=== PATIENT | female | born 1985 | race Caucasian/White ===

== ENCOUNTER 2019-02-24 06:16 | Day surgery (SDC) | payer OTHER ==
[2019-02-22 13:43] LABS: Absolute Lymphocytes (CBC) 3.1 K/uL (0.7-4.9); Absolute Monocytes 0.9 K/uL (0.1-1.3); Absolute Neutrophil 7.5 K/uL (1.8-8.0); Basophils % 0.6 % (0-1.3); Eosinophils % 4.7 % (0-4.4); Hematocrit 45.6 % (36.0-45.0); Lymphocytes % 25.3 % (15.3-44.8); MPV 9.7 fL (7.6-11.3); Monocytes % 7.5 % (3.3-12.3); RBC Red Blood Cell Count 4.98 M/uL (3.86-4.86)
[2019-02-22 13:47] LABS: Urine Appearance CLEAR; Urine Bilirubin NEGATIVE (NEG); Urine Blood NEGATIVE (NEG); Urine Color YELLOW; Urine Glucose NEGATIVE (NEG); Urine Protein NEGATIVE (NEG); Urine Specific Gravity <=1.005 (1.005-1.030); Urine Urobilinogen 0.2 mg/dL (0.2-1.0); Urine pH 6.5 (5.0-7.0)
[2019-02-22 13:49] LABS: Urine Microscopic Reflex NO UMIC
--- OUTSIDE RECORDS SUMMARY | 2019-02-24 06:21 | XMS REPORT | Clinical Summary ---
:1985 Author Organization [facility] Address [address] [place] [address] Care Team Providers Name Role Phone Betty Wilcox MD Primary Care Provider Allergies Active Allergy Reactions Severity Noted Date Comments Hyoscyamine Sulfate 04/29/2018 Morphine Hives, Other (See 10/05/2018 Decreased blood Comments) pressure Medications Medication Sig Dispensed Refills Start Date End Date Status prazosin Take 1 mg by 0 Active (MINIPRESS) 1 MG mouth nightly. capsule lisinopril Take 10 mg by 0 Active (PRINIVIL,ZESTRIL) mouth daily. 10 mg tablet venlafaxine Take 75 mg by 0 Active (EFFEXOR) 75 MG mouth daily. tablet gabapentin Take 300 mg by 0 Active (NEURONTIN) 300 mg mouth 3 capsule (three) times a day. METOPROLOL Take 25 mg by 0 Active SUCCINATE ORAL mouth. clonAZEPAM Take 0.25 mg 2 09/17/2018 Active (KlonoPIN) 0.5 MG by mouth 2 tablet (two) times a day. busPIRone (BUSPAR) Take 15 mg by 0 10/05/2018 Discontinued 15 MG tablet mouth 3 (three) times a day. nitrofurantoin, Take 1 capsule 14 capsule 0 10/09/2018 10/16/2018 macrocrystal-monoh (100 mg total) ydrate, (MACROBID) by mouth 2 100 MG capsule (two) times a day for 7 days. docusate sodium Take 1 capsule 20 capsule 0 10/09/2018 10/19/2018 (COLACE) 100 MG (100 mg total) capsule by mouth every 12 (twelve) hours for 10 days. magnesium citrate Take 1 Bottle 296 mL 0 10/09/2018 10/09/2018 solution (296 mL total) by mouth once for 1 dose. Active Problems No known active problems Encounters Date Type Specialty Care Team Description 02/09/2019 Hospital Encounter Radiology Robby Monterroso Numbness; Abnormal MRI 02/04/2019 Telephone Neurology Magdalena Wolff (Primary Dx); MIKE Tony Abnormal MRI 10/12/2018 Hospital Encounter Radiology Robby Monterroso New daily persistent headache 10/09/2018 Emergency Emergency Medicine Ector Silverman, Right lower quadrant abdominal pain (Primary Dx); DO Constipation, unspecified constipation type; Acute cystitis without hematuria; H/O drug abuse 10/05/2018 Office Visit Neurology Robby Monterroso Paresthesia (Primary Dx); Abnormal MRI 10/05/2018 Telephone Neurology Marcos Wolff daily persistent MIKE Tony headache (Primary Dx) 07/08/2018 Office Visit Neurology Robby Monterroso Paresthesia; Burning sensation; Lumbosacral radiculopathy 06/05/2018 Telephone Neurology Cecily Wolff MA 06/04/2018 Office Visit Neurology Robby Monterroso Demyelinating disease (Primary Dx) 06/02/2018 Telephone Neurology Cecily Wolff MA 05/26/2018 Hospital Encounter Radiology Robby Monterroso Demyelinating disease 05/20/2018 Hospital Encounter Radiology Robby Monterroso Demyelinating disease 05/20/2018 Hospital Encounter Radiology Robby Monterroso Demyelinating disease 05/12/2018 Telephone Neurology Jo Wolff MA (Primary Dx) 05/08/2018 Hospital Encounter Radiology Robby Monterroso Paresthesia MD 05/08/2018 Hospital Encounter Radiology Robby Monterroso Paresthesia; Facial paresthesia; Burning sensation 05/08/2018 Hospital Encounter Radiology Robby Monterroso Lumbosacral MD radiculopathy 04/29/2018 Office Visit Neurology Robby Monterroso Paresthesia (Primary Dx); Facial paresthesia; Burning sensation; Lumbosacral radiculopathy after 02/23/2018 Social History Tobacco Use Types Packs/Day Years Used Date Current Every Day Smoker Smokeless Tobacco: Never Used Alcohol Use Drinks/Week oz/Week Comments Yes ocasionally Sex Assigned at Date Recorded Not on file Job Start Date Occupation Industry Not on file Not on file Not on file Travel History Travel Start Travel End No recent travel history available. Last Filed Vital Signs Vital Sign Reading Time Taken Blood Pressure 138/86 10/09/2018 8:38 PM [employer] Pulse 100 10/09/2018 8:38 PM [employer]CH[employer]ING [employer] Temperature 37.2 C (98.9 F) 10/09/2018 4:20 PM [employer]CH[employer]ING [employer]ER Respiratory Rate 15 10/09/2018 8:38 PM [employer]CHASING ENGINEER Oxygen Saturation 97% 10/09/2018 8:38 PM [employer]CHASING ENGINEER Inhaled Oxygen Concentration - - Weight 103 kg (227 lb) 10/05/2018 2:04 PM [employer]CHASING ENGINEER Height 165.1 cm (5' 5") 10/09/2018 4:03 PM [employer]CH[employer]INEER Body Mass Index 37.77 10/05/2018 2:04 PM [employer]CHASING ENGINEER Plan of Treatment Date Type Specialty Care Team Description 06/07/2019 [place] [address] [facility] [address] [place], [place] [id number] Health Maintenance Due Date Last Done Comments CERVICAL CANCER SCREENING 2005 INFLUENZA VACCINE 06/03/2019 Procedures Procedure Name Priority Date/Time Associated Diagnosis Comments MRI BRAIN W WO Routine 02/09/2019 9:14 Numbness Results for this CONTRAST PM CDT Abnormal MRI procedure are in the results section. ESTIMATED GFR STAT 02/09/2019 8:40 Results for this PM CDT procedure are in the results section. CREATININE, WHOLE STAT 02/09/2019 8:40 Results for this BLOOD PM CDT procedure are in the results section. CT HEAD WO CONTRAST Routine 10/12/2018 3:38 New daily persistent Results for this PM [employer]CH[employer]ING ENGINEER headache procedure are in the results section. CT ABDOMEN PELVIS W STAT 10/09/2018 7:34 Results for this CONTRAST PM [employer]CH[employer]ING ENGINEER procedure are in the results section. URINE DRUGS OF ABUSE STAT 10/09/2018 6:00 Results for this SCREEN PM [employer]CH[employer]ING ENGINEER procedure are in the results section. HCG QUALITATIVE, Routine 10/09/2018 6:00 Results for this URINE SCREEN PM [employer]CH[employer]ING ENGINEER procedure are in the results section. URINALYSIS SCREEN AND STAT 10/09/2018 6:00 Results for this MICROSCOPY, WITH PM [employer]CHASING ENGINEER procedure are in REFLEX TO CULTURE the results section. URINE CULTURE STAT 10/09/2018 6:00 Results for this PM [employer]CH[employer]INEER procedure are in the results section. GRAM STAIN STAT 10/09/2018 6:00 Results for this PM [employer]CH[employer]ING ENGINEER procedure are in the results section. ESTIMATED GFR STAT 10/09/2018 5:59 Results for this PM [employer]CH[employer]ING [employer]INEER procedure are in the results section. LIPASE LEVEL STAT 10/09/2018 5:59 Results for this PM [employer]CH[employer]ING ENGINEER procedure are in the results section. COMPREHENSIVE STAT 10/09/2018 5:59 Results for this METABOLIC PANEL PM [employer]CHASING ENGINEER procedure are in the results section. HC COMPLETE BLD COUNT STAT 10/09/2018 5:59 Results for this W/AUTO DIFF PM [employer]CHASING ENGINEER procedure are in the results section. CYTOLOGY Routine 05/26/2018 10:47 Results for this (NON-GYNECOLOGICAL) AM CDT procedure are in REQUEST the results section. IR LUMBAR PUNCTURE Routine 05/26/2018 9:33 Demyelinating disease Results for this AM CDT procedure are in the results section. VARICELLA ZOSTER Routine 05/26/2018 9:25 Results for this VIRUS AB IGG, CSF AM CDT procedure are in the results section. VARICELLA ZOSTER Routine 05/26/2018 9:25 Results for this VIRUS AB IGM, CSF AM CDT procedure are in the results section. MISCELLANEOUS Routine 05/26/2018 9:25 Results for this REFERRAL TEST AM CDT procedure are in the results section. OLIGOCLONAL BANDING, Routine 05/26/2018 9:25 Results for this CSF AM CDT procedure are in the results section. HERPES SIMPLEX VIRUS Routine 05/26/2018 9:25 Results for this BY PCR AM CDT procedure are in the results section. LYME DISEASE Routine 05/26/2018 9:25 Demyelinating disease Results for this REFLEXIVE PANEL, CSF AM CDT procedure are in the results section. IGG SYNTHESIS RATE Routine 05/26/2018 9:25 Demyelinating disease Results for this STUDY AM CDT procedure are in the results section. VDRL, CSF SCREEN Routine 05/26/2018 9:25 Demyelinating disease Results for this AM CDT procedure are in the results section. GLUCOSE LEVEL, CSF Routine 05/26/2018 9:25 Demyelinating disease Results for this AM CDT procedure are in the results section. CSF CELL COUNT WITH Routine 05/26/2018 9:25 Demyelinating disease Results for this DIFFERENTIAL AM CDT procedure are in the results section. FUNGUS CULTURE Routine 05/26/2018 9:25 Results for this AM CDT procedure are in the results section. AFB CULTURE Routine 05/26/2018 9:25 Results for this AM CDT procedure are in the results section. GRAM STAIN Routine 05/26/2018 9:25 Results for this AM CDT procedure are in the results section. CRYPTOCOCCAL ANTIGEN Routine 05/26/2018 9:25 Demyelinating disease Results for this SCREEN AM CDT procedure are in the results section. CSF CULTURE Routine 05/26/2018 9:25 Demyelinating disease Results for this AM CDT procedure are in the results section. MRI CERVICAL SPINE W Routine 05/20/2018 4:22 Demyelinating disease Results for this WO CONTRAST PM CDT procedure are in the results section. MRI THORACIC SPINE W Routine 05/20/2018 4:21 Demyelinating disease Results for this WO CONTRAST PM CDT procedure are in the results section. MRI BRAIN W WO Routine 05/08/2018 8:08 Paresthesia Results for this CONTRAST PM CDT Facial paresthesia procedure are in Burning sensation the results section. ZZESTIMATED GFR STAT 05/08/2018 6:00 Results for this PM CDT procedure are in the results section. CREATININE, WHOLE STAT 05/08/2018 6:00 Results for this BLOOD PM CDT procedure are in the results section. XR CERVICAL SPINE AP Routine 05/08/2018 5:07 Paresthesia Results for this LATERAL FLEXION AND PM CDT procedure are in EXTENSION the results section. XR LUMBAR SPINE AP Routine 05/08/2018 5:07 Lumbosacral Results for this LATERAL FLEXION AND PM CDT radiculopathy procedure are in EXTENSION the results section. after 02/23/2018 Results MRI Brain W Wo Contrast (02/09/2019 9:14 PM CDT)Only the most recent of2 resultswithin the time period is included. Narrative Performed At EXAMINATION:MRI BRAIN W WO CONTRAST HM [facility] CLINICAL HISTORY:R20.0 Anesthesia of skin, R93.89 Abnormal findings on diagnostic imaging of other specified body structures, numbness COMPARISON:May 08, 2018 Findings: No intracranial hemorrhage, acute ischemia, extra-axial fluid collections or parenchymal mass lesions. No hydrocephalus. No suspicious focal bone marrow lesions. Stable mild periventricular T2/FLAIR signal hyperintensities. There there is some involvement of the corpus callosum. Findings are suggestive of demyelinating disease such as multiple sclerosis. No abnormal postcontrast enhancement. IMPRESSION: No acute intracranial abnormalities or mass lesions. Stable mild white matter signal changes suspicious for demyelinating disease such as multiple sclerosis. [facility]-[id number] Procedure Note Interface, Radiology Results Incoming - 02/09/2019 9:33 PM CDT EXAMINATION: MRI BRAIN W WO CONTRAST CLINICAL HISTORY: R20.0 Anesthesia of skin, R93.89 Abnormal findings on diagnostic imaging of other specified body structures, numbness COMPARISON: May 08, 2018 Findings: No intracranial hemorrhage, acute ischemia, extra-axial fluid collections or parenchymal mass lesions. No hydrocephalus. No suspicious focal bone marrow lesions. Stable mild periventricular T2/FLAIR signal hyperintensities. There there is some involvement of the corpus callosum. Findings are suggestive of demyelinating disease such as multiple sclerosis. No abnormal postcontrast enhancement. IMPRESSION: No acute intracranial abnormalities or mass lesions. Stable mild white matter signal changes suspicious for demyelinating disease such as multiple sclerosis. [facility]-[id number] Performing Organization Address City/[facility]/Zipcode Phone Number DIN[facility] [address] [place] [address] Estimated GFR (02/09/2019 8:40 PM CDT)Only the most recent of2 resultswithin the time period is included. Estimated GFR >=90 mL/min/1.73 m2 [facility] CatergoryUnitsInterpretation G1 >=90 Normal or high G2 60-89Mildly decreased S8t47-55Eyngie to moderately decreased L6j51-98Zhcwfdxgwz to severely decreased G4 15-29Severely decreased G5 <15Kidney failure The eGFR was calculated using the Chronic Kidney Disease Epidemiology Collaboration (CKD-EPI) equation. Interpretation is based on recommendations of the National Kidney Foundation-Kidney Disease Outcomes Quality Initiative (NKF-KDOQI) published in 2014. Specimen Plasma specimen Performing Organization Address [facility] Phone Number [facility] DEPARTMENT OF PATHOLOGY [id number] [place] [address] AND GENOMIC MEDICINE [facility] [id number] [place] [address] HOSPITAL Creatinine, whole blood (02/09/2019 8:40 PM CDT)Only the most recent of2 resultswithin the time period is included. Creatinine, whole blood 0.58 0.50 - 0.90 mg/dL [facility] Specimen Plasma specimen Performing Organization Address [facility] Centercode Phone Number [facility] DEPARTMENT OF PATHOLOGY [id number] [place] [address] AND [employer] MEDIC[facility] [address] [facility]. [place], [place] [id number] [place] [address] CT Head Wo Contrast (10/12/2018 3:38 PM PURCHASING ENGINEER) Narrative Performed At EXAMINATION: CT HEAD WO CONTRAST [facility] CLINICAL HISTORY: G44.52 New daily persistent headache (ndph), headache COMPARISON:None TECHNIQUE: Noncontrast CT of the brain was performed from the skull base to the vertex. Both soft tissue and bone reconstruction algorithms are interpreted. CT imaging was performed with iterative reconstruction techniques and/or automated exposure control to reduce radiation dose. FINDINGS: No intracranial hemorrhage, extra-axial collection, or mass-effect is seen.No acute cortical infarct is identified. No hyperdense vessel is seen. No air-fluid level is seen in the visualized portions of the paranasal sinuses. Mastoid air cells are clear. IMPRESSION: Unremarkable CT brain. [facility]-[id number] Procedure Note Hm Interface, Radiology Results Incoming - 10/12/2018 3:45 PM PURCHASING ENGINEER EXAMINATION: CT HEAD WO CONTRAST CLINICAL HISTORY: G44.52 New daily persistent headache (ndph), headache COMPARISON: None TECHNIQUE: Noncontrast CT of the brain was performed from the skull base to the vertex. Both soft tissue and bone reconstruction algorithms are interpreted. CT imaging was performed with iterative reconstruction techniques and/or automated exposure control to reduce radiation dose. FINDINGS: No intracranial hemorrhage, extra-axial collection, or mass-effect is seen. No acute cortical infarct is identified. No hyperdense vessel is seen. No air-fluid level is seen in the visualized portions of the paranasal sinuses. Mastoid air cells are clear. IMPRESSION: Unremarkable CT brain. [facility]-[id number] Performing Organization Address City/State/Zipcode Phone Number [facility] [address] [place] [address] CT Abdomen Pelvis W Contrast (10/09/2018 7:34 PM PURCHASING ENGINEER) Narrative Performed At EXAMINATION:CT ABDOMEN PELVIS W CONTRAST [facility] CLINICAL HISTORY:RLQ pain TECHNIQUE: Multiple axial images of the abdomen and pelvis were obtained following intravenous administration of iodinated contrast. Sagittal and coronal computerized reformatted images were also obtained. CT scans are performed using radiation dose reduction techniques. Technical factors are evaluated and adjusted to ensure appropriate moderation of exposure. Automated dose management technology is applied to adjust radiation exposure while achieving a diagnostic quality image. COMPARISON:None. IMPRESSION: *No significant CT finding to explain the patient's right lower quadrant abdominal pain. The appendix is unremarkable. Stomach, small and large bowel are unremarkable. *Clear lung bases. Liver, gallbladder, spleen, pancreas, adrenal glands, kidneys, urinary bladder are unremarkable. Uterus is present. No large adnexal masses. No significant free fluid. No enlarged adenopathy by CT size criteria. Abdominal aorta and major branch vessels are unremarkable. Osseous sutures are intact. Mild to moderate degenerative disc disease at L4-5. [facility]-[id number] Procedure Note Interface, Radiology Results Incoming - 10/09/2018 7:45 PM PURCHASING ENGINEER EXAMINATION: CT ABDOMEN PELVIS W CONTRAST CLINICAL HISTORY: RLQ pain TECHNIQUE: Multiple axial images of the abdomen and pelvis were obtained following intravenous administration of iodinated contrast. Sagittal and coronal computerized reformatted images were also obtained. CT scans are performed using radiation dose reduction techniques. Technical factors are evaluated and adjusted to ensure appropriate moderation of exposure. Automated dose management technology is applied to adjust radiation exposure while achieving a diagnostic quality image. COMPARISON: None. IMPRESSION: * No significant CT finding to explain the patient's right lower quadrant abdominal pain. The appendix is unremarkable. Stomach, small and large bowel are unremarkable. * Clear lung bases. Liver, gallbladder, spleen, pancreas, adrenal glands, kidneys, urinary bladder are unremarkable. Uterus is present. No large adnexal masses. No significant free fluid. No enlarged adenopathy by CT size criteria. Abdominal aorta and major branch vessels are unremarkable. Osseous sutures are intact. Mild to moderate degenerative disc disease at L4-5. [facility]-[id number] Performing Organization Address City/State/Zipcode Phone Number [facility] [address] [place] [address] Urinalysis screen and microscopy, with reflex to culture (10/09/2018 6:00 PM PURCHASING ENGINEER) Specimen site Clean catch [facility] Color, UA Straw [facility] Appearance, UA Clear [facility] Specific gravity, UA 1.005 1.001 - 1.030 [facility] pH, UA 7.0 5.0 - 9.0 [facility] Protein, UA Negative Negative [facility] Glucose, UA Negative Negative [facility] Ketones, UA Negative Negative [facility] Bilirubin, UA Negative Negative [facility] Blood, UA Negative Negative [facility] Nitrite, UA Negative Negative [facility] Urobilinogen, UA <2.0 <2.0 E.U./dL [facility] Leukocyte esterase, UA Trace (A) Negative [facility] Epithelial cells, UA <1 /HPF [facility] Round epithelial cells, UA <1 0 - 5 /HPF [facility] WBC, UA 4 0 - 4 /HPF [facility] RBC, UA 3 0 - 5 /HPF [facility] Bacteria, UA Moderate (A) None seen [facility] Yeast, UA None seen [facility] Yeast with pseudohyphae, UA None seen [facility] Specimen Urine Performing Organization Address City/[facility] Centercode Phone Number [facility] DEPARTMENT OF PATHOLOGY [address] [place] [address] hCG qualitative, urine screen (10/09/2018 6:00 PM PURCHASING ENGINEER) hCG qualitative, urine NegativeComment: [facility] Sensitivity of HCG test: [address] [place] [address] mIU/ml Specimen Urine Performing Organization Address City/[facility] Centercode Phone Number [facility] DEPARTMENT OF PATHOLOGY [address] [place] [address] Urine drugs of abuse screen (10/09/2018 6:00 PM PURCHASING ENGINEER) Amphetamine screen, urine Negative [facility] Barbiturate screen, urine Negative [facility] Benzodiazepine screen, Negative [facility] urine [facility] Cannabinoid screen, urine Negative [facility] Cocaine screen, urine Negative [facility] Methadone metabolite Negative [facility] (EDDP), urine [facility] Opiates screen, urine Negative [facility] Phencyclidine screen, urine Negative [facility] Tricyclic screen, urine Negative [facility] Comment: [facility] Drug screen minimum concentration of detectability [id number] ng/mL Barbiturates 200 ng/mL Zkybajavktkhzvf598 ng/mL Ucezfsx488 ng/mL Rtsmmoprd957 ng/mL Jvudlrq226 ng/mL Phencyclidine 25 ng/mL Mkmuzyrircuf63 ng/mL Lhxlbwdbzi8277 ng/mL Negative test results indicates presumptive evidence of lack of clinically significant drug concentration in this urine specimen. Positive test results are presumptive evidence of clinically significant drug concentration in this urine specimen. Testing performed for medical purposes only. Specimen Urine Performing Organization Address City/[facility] Centercode Phone Number [facility] DEPARTMENT OF PATHOLOGY [address] [place] [address] AND [facility] [address] [place] [address] HOSPITAL Gram stain (10/09/2018 6:00 PM PURCHASING ENGINEER)Only the most recent of2 resultswithin the time period is included. Gram stain result No WBC's [facility] Moderate Gram positive rods Comment: Specimen Information Specimen Source: Urine Specimen Site: Clean catch Specimen Urine Performing Organization Address City/[facility] Centercode Phone Number [facility] DEPARTMENT OF PATHOLOGY AND [address] [place] [phone] Urine culture (10/09/2018 6:00 PM PURCHASING ENGINEER) Urine culture isolate Mixed samanta <=10-3 col/cc [facility] Comment: Specimen Information Specimen Source: Urine Specimen Site: Clean catch Specimen Urine Performing Organization Address [facility] Phone Number [facility] DEPARTMENT OF PATHOLOGY AND [address] [place] [phone] CBC with platelet and differential (10/09/2018 5:59 PM PURCHASING ENGINEER) WBC 11.9 (H) 4.5 - 11.0 k/uL [facility] RBC 4.93 4.20 - 5.50 m/uL [facility] HGB 14.9 12.0 - 16.0 g/dL [facility] HCT 45.9 37.0 - 47.0 % [facility] MCV 93.1 82.0 - 100.0 fL [facility] MCH 30.2 27.0 - 34.0 pg [facility] MCHC 32.5 31.0 - 37.0 g/dL [facility] RDW - SD 43.6 37.0 - 55.0 fL [facility] MPV 10.3 6.9 - 11.0 fL [facility] Platelet count 343 150 - 400 K/uL [facility] Nucleated RBC 0.00 /100 WBC [facility] Neutrophils 66.1 39.0 - 69.0 % [facility] Lymphocytes 24.5 (L) 25.0 - 45.0 % [facility] Monocytes 5.1 0.0 - 10.0 % [facility] Eosinophils 3.4 0.0 - 5.0 % [facility] Basophils 0.5 0.0 - 1.0 % [facility] Immature granulocytes 0.4 0.0 - 1.0 % [facility] Specimen Blood Performing Organization Address City/[facility]/Zipcode Phone Number [facility] DEPARTMENT OF PATHOLOGY [id number] [place] [address] Lipase level (10/09/2018 5:59 PM PURCHASING ENGINEER) Lipase 30 13 - 60 U/L [facility] Specimen Plasma specimen Performing Organization Address City/[facility]/Zipcode Phone Number [facility] DEPARTMENT OF PATHOLOGY [address] [place] [address] Comprehensive metabolic panel (10/09/2018 5:59 PM PURCHASING ENGINEER) Sodium 143 135 - 148 mEq/L [facility] Potassium 4.1 3.5 - 5.0 mEq/L [facility] Chloride 102 98 - 112 mEq/L [facility] CO2 25 24 - 31 mEq/L [facility] Anion gap 16@ANIO (H) 7 - 15 mEq/L [facility] BUN 7 6 - 20 mg/dL [facility] Creatinine 0.67 0.50 - 0.90 mg/dL [facility] Glucose 115 (H) 65 - 99 mg/dL [facility] Calcium 10.0 8.3 - 10.2 mg/dL [facility] Protein 8.0 6.3 - 8.3 g/dL [facility] Albumin 4.5 3.5 - 5.0 g/dL [facility] A/G ratio 1.3 0.7 - 3.8 [facility] Alkaline phosphatase 66 35 - 104 U/L [facility] AST 16 10 - 35 U/L [facility] ALT 13 5 - 50 U/L [facility] Total bilirubin <0.2 0.2 - 1.2 mg/dL [facility] Specimen Plasma specimen Performing Organization Address City/State/Zipcode Phone Number [facility] DEPARTMENT OF PATHOLOGY [address] [place] [address] AND GENOMIC MEDICINE [facility] [id number] [place] [address] Cytology (non-gynecological) request (05/26/2018 10:47 AM CDT) [facility] DEPARTMENT OF PATHOLOGY AND GENOMIC MEDICINE Cytology See link below for PDF [facility] DEPARTMENT OF (non-gynecological) report Lab Report PATHOLOGY AND GENOMIC MEDICINE Result status This is Final Report to [facility] DEPARTMENT OF [id number] PATHOLOGY AND GENOMIC MEDICINE Performing Organization Address City/[facility]ode Phone Number [facility] DEPARTMENT OF PATHOLOGY [id number] [place] [address] AND GENOMIC MEDICINE IR Lumbar Puncture by Radiology (05/26/2018 9:33 AM CDT) Narrative Performed At EXAMINATION:IR LUMBAR PUNCTURE [facility] NUMBER OF VIEWS: 0 CLINICAL HISTORY:G37.9 Demyelinating disease of central nervous systemunspecified, abnormal mri brain COMPARISON:None. FINDINGS: After informed consent, lumbar puncture was performed with fluoroscopic assistance at the L5-S1 level using a 5 inch 25-gauge spinal needle. Approximately 22 cc of clear cerebral spinal fluid was obtained and sent to the lab. No radiographs were taken. The total fluoroscopy time was 0.03 minutes. IMPRESSION: Lumbar puncture. [facility]-[id number] Procedure Note Hm Interface, Radiology Results Incoming - 05/26/2018 11:00 AM CDT EXAMINATION: IR LUMBAR PUNCTURE NUMBER OF VIEWS: 0 CLINICAL HISTORY: G37.9 Demyelinating disease of central nervous system unspecified, abnormal mri brain COMPARISON: None. FINDINGS: After informed consent, lumbar puncture was performed with fluoroscopic assistance at the L5-S1 level using a 5 inch 25-gauge spinal needle. Approximately 22 cc of clear cerebral spinal fluid was obtained and sent to the lab. No radiographs were taken. The total fluoroscopy time was 0.03 minutes. IMPRESSION: Lumbar puncture. [id number] Performing Organization Address City/[facility]/Zipcode Phone Number [facility] [address] [place] [address] Varicella zoster virus Ab IgM, CSF (05/26/2018 9:25 AM CDT) VZV antibody IgM, CSF 0.00 <=0.90 [facility] Comment: INTERPRETIVE INFORMATION: VZV Ab, IgM, CSF 0.90 ISR or less ........ Negative - No significant level of IgM antibody to varicella- zoster detected. 0.91 - 1.09 ISR ......... Equivocal - Repeat testing in 10-14 days may be helpful. 1.10 ISR or greater ..... Positive - Significant level of IgM antibody to varicella- zoster virus detected , which may indicate current or recent infection. However, low levels of antibodies may occasionally persist for more than 12 months post-infection. While the presence of IgM antibodies suggest current or recent infection, low levels of IgM antibodies may occasionally persist for more than 12 months post-infection. The detection of antibodies to varicella-zoster in CSF may indicate central nervous system infection. However, consideration must be given to possible contamination by blood or transfer of serum antibodies across the blood-brain barrier. Test developed and characteristics determined by [facility]. See Compliance Statement B: [employer]/ Performed by [facility], [address] [place] [address] www.[employer], John Hanna MD - Lab. Director Specimen Serum Performing Organization Address [facility] Centercode Phone Number [facility] LABORATORY [address] [place] [address] Varicella zoster virus Ab IgG, CSF (05/26/2018 9:25 AM CDT) VZV antibody IgG, CSF <10 IV [facility] Comment: INTERPRETIVE INFORMATION: VZV Ab, IgG, CSF 134 IV or Less.... Negative: No significant level of IgG antibody to varicella- zoster virus detected. 135 - 165 IV ....... Equivocal: Repeat testing in 10-14 days may be helpful. 166 IV or Greater .. Positive: IgG antibody to varicella-zoster virus detected , which may indicate a current or past varicella-zoster infection. The detection of antibodies to varicella-zoster in CSF may indicate central nervous system infection. However, consideration must be given to possible contamination by blood or transfer of serum antibodies across the blood-brain barrier. Test developed and characteristics determined by [facility]. See Compliance Statement B: [employer]/ Performed by [facility], [address] [place] [address] www.[employer], John Hanna MD - Lab. Director Specimen Serum Performing Organization Address City/[facility]/Zipcode Phone Number [facility] [address] [place] [address] IgG synthesis rate study (05/26/2018 9:25 AM CDT) IgG albumin ratio, CSF 0.12 0.00 - 0.23 [facility] DEPARTMENT OF PATHOLOGY AND GENOMIC MEDICINE IgG index, CSF 0.58 0.01 - 0.63 [facility] DEPARTMENT OF PATHOLOGY AND GENOMIC MEDICINE IgG synthetic rate 2.04 -9.90 - 3.30 mg/day [facility] DEPARTMENT OF PATHOLOGY AND GENOMIC MEDICINE Q-albumin ratio, CSF 4.44 2.00 - 7.50 [facility] DEPARTMENT OF PATHOLOGY AND GENOMIC MEDICINE IgG, CSF 1.97 1.00 - 3.00 mg/dL [facility] DEPARTMENT OF PATHOLOGY AND GENOMIC MEDICINE Albumin, CSF 16.88 10.00 - 30.00 mg/dL [facility] DEPARTMENT OF PATHOLOGY AND GENOMIC MEDICINE IgG 766 700 - 1,600 mg/dL [facility] DEPARTMENT OF PATHOLOGY AND GENOMIC MEDICINE Albumin, S 3,800.0 3,640.0 - 5,304.0 mg/dL [facility] DEPARTMENT OF PATHOLOGY AND GENOMIC MEDICINE Specimen Cerebrospinal fluid Performing Organization Address City/State/Zipcode Phone Number [facility] DEPARTMENT OF PATHOLOGY AND [address] [place] [address] [facility] MEDICINE Miscellaneous referral test (05/26/2018 9:25 AM CDT) [facility] test name HSV IgG/IgM, CSF [facility] result SEE NOTE [facility] Comment: Herpes Simplex Virus Type 1 and/or 2 Antibodies, IgM by ROSSY, CSF [facility] test code [id number] HSV 1 and/or 2 Antibodies IgM, CSF 0.14 IV (Ref Interval: <=0.89) INTERPRETIVE INFORMATION: Herpes Simplex Virus Type 1 and/or 2 Antibodies, IgM by ROSSY, CSF 0.89 IV or Less .......... Negative: No significant level of detectable HSV IgM antibody. 0.90 - 1.09 IV ........... Equivocal: Questionable presence of IgM antibodies. Repeat testing in 10 -14 days may be helpful. 1.10 IV or Greater ....... Positive: IgM antibody to HSV detected, which may indicate a current or recent infection. However, low levels of IgM antibodies may occasionally persist for more than 12 months post- infection. The detection of antibodies to herpes simplex virus in CSF may indicate central nervous system infection. However, consideration must be given to possible contamination by blood or transfer of serum antibodies across the blood-brain barrier. Fourfold or greater rise in CSF antibodies to herpes on specimens at least 4 weeks apart are found in 74-94 % of patients with herpes encephalitis. Specificity of the test based on a single CSF testing is not established. Presently PCR is the primary means of establishing a diagnosis of herpes encephalitis. Test developed and characteristics determined by [facility]. See Compliance Statement B: [email or web address] Herpes Simplex Virus Type 1 and/or 2 Antibodies, IgG, CSF [facility] test code [id number] HSV 1/2 Antibody Screen IgG, CSF <0.34 IV (Ref Interval: <=0.89) INTERPRETIVE INFORMATION: Herpes Simplex Virus Type 1 and/or 2 Antibodies, IgG CSF 0.89 IV or Less .......... Negative: No significant level of detectable HSV IgG antibody. 0.90 - 1.09 IV ........... Equivocal: Questionable presence of IgG antibodies. Repeat testing in 10 -14 days may be helpful. 1.10 IV or Greater ....... Positive: IgG antibody to HSV detected, which may indicate a current or past HSV infection. The detection of antibodies to herpes simplex virus in CSF may indicate central nervous system infection. However, consideration must be given to possible contamination by blood or transfer of serum antibodies across the blood-brain barrier. Fourfold or greater rise in CSF antibodies to herpes on specimens at least 4 weeks apart are found in 74-94 % of patients with herpes encephalitis. Specificity of the test based on a single CSF testing is not established. Presently PCR is the primary means of establishing a diagnosis of herpes encephalitis. Test developed and characteristics determined by [facility]. See Compliance Statement B: [employer]/CS Test performed by: [facility] [address] [place], [id number] Narrative Performed At HSV IgG/IgM, CSF [facility] Performing Organization Address [facility] Centercoin Phone Number [facility] [address] [place] [address] Herpes simplex virus by PCR (05/26/2018 9:25 AM CDT) Herpes virus, PCR Not-Detected Not-Detected [facility] DEPARTMENT OF PATHOLOGY AND [employer] [facility] Herpes virus, PCR See link below for PDF [facility] DEPARTMENT OF PATHOLOGY Lab ReportComment: Case AND GENOMIC MEDICINE Number: [id number] Performing Organization Address [facility] Centercode Phone Number [facility] DEPARTMENT OF PATHOLOGY AND [address] [place] [address] [employer] [facility] AFB culture (05/26/2018 9:25 AM CDT) AFB culture isolate No growth after 6 weeks of incubation. [facility] DEPARTMENT OF PATHOLOGY Comment: AND [employer] MEDICINE Specimen Information Specimen Source: CSF (Spinal Fluid) Specimen Site: Lumbar puncture Specimen Cerebrospinal fluid - Lumbar puncture Performing Organization Address [facility] Phone Number [facility] DEPARTMENT OF PATHOLOGY AND [address] [place] [address] [employer] Lyme disease reflexive panel, CSF (05/26/2018 9:25 AM CDT) B. burgdorferi Abs ROSSY, 0.11 <=0.99 [facility] CSF Comment: When the Borrelia burgdorferi Abs, Total by ROSSY result is negative, no further testing is done. INTERPRETIVE INFORMATION: Borrelia burgdorferi Abs, ROSSY, CSF 0.99 ANGEL LUIS or less: ......... Negative - Antibody to B. burgdorferi not detected. 1.00 - 1.20 ANGEL LUIS ........... Equivocal - Repeat testing in 10-14 days may be helpful. 1.21 ANGEL LUIS or greater: ...... Positive - Probable presence of antibody to B. burgdorferi detected. The detection of antibodies to B. burgdorferi in cerebrospinal fluid may indicate central nervous system infection.However, consideration must be given to possible contamination by blood or transfer of serum antibodies across the blood-brain barrier. Current CDC recommendations for the serologic diagnosis of Lyme disease are to screen with a polyvalent ROSSY test and confirm equivocal and positive results with immunoblot.Both IgM and IgG immunoblots should be performed on samples less than 4 weeks after appearance of erythema migrans.Only IgG immunoblot should be performed on samples greater than 4 weeks after the disease onset. IgM immunoblot in the chronic stage is not recommended and does not aid in the diagnosis of neuroborreliosis or chronic Lyme disease.Please submit requests for appropriate immunoblot testing within 10 days. Test developed and characteristics determined by [facility]. See Compliance Statement B: [employer]/CS Performed by [facility], [address] [place], [place] [id number] www.[employer], John Hanna MD - Lab. Director Specimen Cerebrospinal fluid Performing Organization Address City/State/Zipcode Phone Number [address] [facility] [address] [place] [address] Cryptococcal antigen, screen (05/26/2018 9:25 AM CDT) Cryptococcal Ag Negative - No Cryptococcus antigen detected. [facility] DEPARTMENT OF PATHOLOGY Comment: AND [employer] MEDICINE Specimen Information Specimen Source: CSF (Spinal Fluid) Specimen Site: Lumbar puncture Specimen Cerebrospinal fluid - Lumbar puncture Performing Organization Address City/State/Zipcode Phone Number [facility] DEPARTMENT OF PATHOLOGY AND [address] [place] [address] [employer] MEDICINE Oligoclonal banding, CSF (05/26/2018 9:25 AM CDT) Protein, CSF 26 15 - 45 mg/dL [facility] DEPARTMENT OF PATHOLOGY AND GENOMIC MEDICINE Prealbumin, CSF 4.2 3.5 - 11.1 % [facility] DEPARTMENT OF PATHOLOGY AND GENOMIC MEDICINE Albumin, CSF 67.0 (H) 40.8 - 66.2 % [facility] DEPARTMENT OF PATHOLOGY AND GENOMIC MEDICINE Alpha 1, CSF 2.7 2.3 - 6.4 % [facility] DEPARTMENT OF PATHOLOGY AND GENOMIC MEDICINE Alpha 2, CSF 6.3 6.1 - 12.6 % [facility] DEPARTMENT OF PATHOLOGY AND GENOMIC MEDICINE Beta, CSF 13.9 11.7 - 24.1 % [facility] DEPARTMENT OF PATHOLOGY AND GENOMIC MEDICINE Gamma, CSF 5.9 5.6 - 12.2 % [facility] DEPARTMENT OF PATHOLOGY AND GENOMIC MEDICINE CSF extended See Comment [facility] DEPARTMENT OF interpretation Comment: PATHOLOGY AND GENOMIC A normal CSF protein study with normal indices and no oligoclonal bands MEDICINE seen. CSF interpretation See CommentComment: [facility] DEPARTMENT OF Niall Stephenson PhD; PATHOLOGY AND GENOMIC Patrick Kauffman PhD; MEDICINE Loki Winston MD PhD Specimen Cerebrospinal fluid Performing Organization Address City/[facility] Centercode Phone Number [facility] DEPARTMENT OF PATHOLOGY AND [address] [place] [address] CSF culture (05/26/2018 9:25 AM CDT) CSF culture isolate No growth after 3 days. [facility] DEPARTMENT OF PATHOLOGY Comment: AND GENOMIC MEDICINE Specimen Information Specimen Source: CSF (Spinal Fluid) Specimen Site: Lumbar puncture Specimen Cerebrospinal fluid - Lumbar puncture Performing Organization Address City/[facility]/Zipcode Phone Number [facility] DEPARTMENT OF PATHOLOGY AND [address] [place] [address] Fungus culture (05/26/2018 9:25 AM CDT) Fungus culture isolate No growth after 4 weeks of incubation. [facility] DEPARTMENT OF Comment: PATHOLOGY AND GENOMIC Specimen Information MEDICINE Specimen Source: CSF (Spinal Fluid) Specimen Site: Lumbar puncture Specimen Cerebrospinal fluid - Lumbar puncture Performing Organization Address City/[facility]ercode Phone Number [facility] DEPARTMENT OF PATHOLOGY AND [address] [place] [address] CSF cell count with differential (05/26/2018 9:25 AM CDT) CSF tube number Tube 2 [facility] DEPARTMENT OF PATHOLOGY AND GENOMIC MEDICINE Color, CSF Colorless [facility] DEPARTMENT OF PATHOLOGY AND GENOMIC MEDICINE Appearance, CSF Clear [facility] DEPARTMENT OF PATHOLOGY AND GENOMIC MEDICINE RBC, CSF 1 0 - 1 /CMM [facility] DEPARTMENT OF PATHOLOGY AND GENOMIC MEDICINE WBC, CSF 8 (H) 0 - 5 /CMM [facility] DEPARTMENT OF PATHOLOGY AND GENOMIC MEDICINE CSF mononuclear cell See Diff [facility] DEPARTMENT OF PATHOLOGY AND GENOMIC MEDICINE Neutrophils, CSF 1 % [facility] DEPARTMENT OF PATHOLOGY AND GENOMIC MEDICINE Lymphocytes, CSF 88 % [facility] DEPARTMENT OF PATHOLOGY AND GENOMIC MEDICINE Monocytes, CSF 11 % [facility] DEPARTMENT OF PATHOLOGY AND GENOMIC MEDICINE Specimen Cerebrospinal fluid Performing Organization Address City/State/Zipcode Phone Number [facility] DEPARTMENT OF PATHOLOGY [address] [place] [address] AND [facility] MEDICINE VDRL, CSF screen (05/26/2018 9:25 AM CDT) VDRL, CSF screen Non-reactive Non-reactive [facility] DEPARTMENT OF PATHOLOGY AND GENOMIC MEDICINE Specimen Cerebrospinal fluid Performing Organization Address City/State/Zipcode Phone Number [facility] DEPARTMENT OF PATHOLOGY AND [address] [place] [address] [facility] MEDICINE Glucose level, CSF (05/26/2018 9:25 AM CDT) Glucose, CSF 59 40 - 70 mg/dL [facility] DEPARTMENT OF PATHOLOGY Comment: AND [employer] MEDICINE Corrected result(s) called to _Oc Wolff/MIKE to Dr. Monterroso (name/location) at _ 06/05/201808:30 (date/time) by __NXF. Corrected result; previously reported as <5 on 05/26/2018 at 11:50 by I/AUT Specimen Cerebrospinal fluid Performing Organization Address City/State/Zipcode Phone Number [facility] DEPARTMENT OF PATHOLOGY [address] [facility] [place] [address] AND [facility] MRI Cervical Spine W Wo Contrast (05/20/2018 4:22 PM CDT) Narrative Performed At EXAMINATION: MRI CERVICAL SPINE W WO CONTRAST [facility] CLINICAL HISTORY: G37.9 Demyelinating disease of central nervous systemunspecified, abnormal mri brain COMPARISON:Cervical x-ray dated May 08, 2018 TECHNIQUE: Multiplanar multisequence pre and post contrast enhanced examination was performed of the cervical spine. FINDINGS: Vertebral body heights are maintained. The cervicomedullary junction is unremarkable. No cord signal abnormality identified. No focal marrow lesions. No masses are present in the visualized prevertebral soft tissues. No enhancing lesion identified on the postcontrast images. There are stable mild reversal of the cervical lordosis as noted on prior x-ray imaging. There is no focal abnormal changes in the spinal cord to suggest demyelinating disease identified by MRI. Specifically, there is no T2 signal change or enhancement. Axial images through the disc spaces demonstrate the following: C1-C2: There is narrowing of the atlantoaxial interval with spurring. There is no significant stenosis. C2-C3: No significant posterior disc disease, spinal canal or neural foraminal stenosis. C3-C4: There is mild right foraminal narrowing. C4-C5: There is mild to moderate bilateral foraminal narrowing. C5-C6: There is mild bilateral foraminal narrowing. C6-C7: No significant posterior disc disease, spinal canal or neural foraminal stenosis. C7-T1: No significant posterior disc disease, spinal canal or neural foraminal stenosis. No significant posterior disc disease, spinal canal or neural foraminal stenosis at other visualized levels. IMPRESSION: There is mild spondylosis without significant stenosis. There is no enhancing lesion or other cord signal abnormality to suggest demyelinating disease in the cervical line. [facility]-[id number] Procedure Note Hm Interface, Radiology Results Incoming - 05/20/2018 6:00 PM CDT EXAMINATION: MRI CERVICAL SPINE W WO CONTRAST CLINICAL HISTORY: G37.9 Demyelinating disease of central nervous system unspecified, abnormal mri brain COMPARISON: Cervical x-ray dated May 08, 2018 TECHNIQUE: Multiplanar multisequence pre and post contrast enhanced examination was performed of the cervical spine. FINDINGS: Vertebral body heights are maintained. The cervicomedullary junction is unremarkable. No cord signal abnormality identified. No focal marrow lesions. No masses are present in the visualized prevertebral soft tissues. No enhancing lesion identified on the postcontrast images. There are stable mild reversal of the cervical lordosis as noted on prior x- ray imaging. There is no focal abnormal changes in the spinal cord to suggest demyelinating disease identified by MRI. Specifically, there is no T2 signal change or enhancement. Axial images through the disc spaces demonstrate the following: C1-C2: There is narrowing of the atlantoaxial interval with spurring. There is no significant stenosis. C2-C3: No significant posterior disc disease, spinal canal or neural foraminal stenosis. C3-C4: There is mild right foraminal narrowing. C4-C5: There is mild to moderate bilateral foraminal narrowing. C5-C6: There is mild bilateral foraminal narrowing. C6-C7: No significant posterior disc disease, spinal canal or neural foraminal stenosis. C7-T1: No significant posterior disc disease, spinal canal or neural foraminal stenosis. No significant posterior disc disease, spinal canal or neural foraminal stenosis at other visualized levels. IMPRESSION: There is mild spondylosis without significant stenosis. There is no enhancing lesion or other cord signal abnormality to suggest demyelinating disease in the cervical line. [facility]-[id number] Performing Organization Address City/State/Zipcode Phone Number [facility] [address] [place] [address] MRI Thoracic Spine W Wo Contrast (05/20/2018 4:21 PM CDT) Narrative Performed At EXAMINATION:MRI THORACIC SPINE W WO CONTRAST [facility] CLINICAL HISTORY:G37.9 Demyelinating disease of central nervous system unspecified, abnormal mri brain COMPARISON:None. FINDINGS: Pre and postcontrast enhanced imaging of the thoracic spine was obtained in the sagittal and axial planes. The paraspinous soft tissue shows no mass or adenopathy. There is no aneurysm. There is no fluid collection. Visualized lungs are unremarkable. The spinal cord is intact. There is no signal change. Specifically there is no evidence of enhancement or evidence of prior demyelinating insults. The canal is widely patent. There is no significant spondylosis. Sagittal imaging shows preservation of the perineural fat without foraminal narrowing. Vertebral body heights are preserved. There is no fracture or spondylolisthesis. Alignment is normal. IMPRESSION: Unremarkable thoracic spine MRI with no significant osseous abnormality or spinal cord abnormality. There is no evidence of enhancement or acute or prior demyelinating insult identified. [facility]-[id number] Procedure Note Interface, Radiology Results [facility] - 05/20/2018 6:02 PM CDT EXAMINATION: MRI THORACIC SPINE W WO CONTRAST CLINICAL HISTORY: G37.9 Demyelinating disease of central nervous system unspecified, abnormal mri brain COMPARISON: None. FINDINGS: Pre and postcontrast enhanced imaging of the thoracic spine was obtained in the sagittal and axial planes. The paraspinous soft tissue shows no mass or adenopathy. There is no aneurysm. There is no fluid collection. Visualized lungs are unremarkable. The spinal cord is intact. There is no signal change. Specifically there is no evidence of enhancement or evidence of prior demyelinating insults. The canal is widely patent. There is no significant spondylosis. Sagittal imaging shows preservation of the perineural fat without foraminal narrowing. Vertebral body heights are preserved. There is no fracture or spondylolisthesis. Alignment is normal. IMPRESSION: Unremarkable thoracic spine MRI with no significant osseous abnormality or spinal cord abnormality. There is no evidence of enhancement or acute or prior demyelinating insult identified. [id number] Performing Organization Address City/State/Zipcode Phone Number [facility] [address] [place] [address] Estimated GFR (05/08/2018 6:00 PM CDT) GFR Non Af Amer >90 mL/min/1.73 m2 [facility] DEPARTMENT OF PATHOLOGY AND GENOMIC MEDICINE GFR Af Amer >90 mL/min/1.73 m2 [facility] DEPARTMENT OF Comment: PATHOLOGY AND GENOMIC Chronic kidney disease: <60 mL/min/1.73m2 MEDICINE Kidney failure: <15 mL/min/1.73m2 The estimated GFR is calculated from the IDMS-traceable Modification of Diet in Renal Disease Equation. The accuracy of the calculation is poor when the creatinine is normal. Calculated values >90 mL/min/1.73m2 are not reported. This equation has not been validated in children (<18 years), women, the elderly (>70 years), or ethnic groups other than Caucasians and Americans. Specimen Plasma specimen Performing Organization Address City/[facility]/Zipcode Phone Number [facility] DEPARTMENT OF PATHOLOGY [address] [place] [address] AND [employer] XR Cervical Spine Ap Lateral Flexion And Extension (05/08/2018 5:07 PM CDT) Narrative Performed At EXAMINATION: XR CERVICAL SPINE AP LATERAL FLEXION AND EXTENSION [facility] CLINICAL HISTORY: R20.2 Paresthesia of skin, left arm weakness COMPARISON:None IMPRESSION: 4 views of the cervical spine including dynamic lateral radiographs are submitted. There is moderate reversal of normal cervical lordosis in the neutral position. There is normal lordosis in the extended position. Vertebral heights are preserved. No fracture or aggressive bone lesion is seen. Minimal disc degenerative changes are noted at C5-6. Alignment is anatomic. Prevertebral soft tissues are unremarkable. [id number] Procedure Note Interface, Radiology Results Incoming - 05/08/2018 5:15 PM CDT EXAMINATION: XR CERVICAL SPINE AP LATERAL FLEXION AND EXTENSION CLINICAL HISTORY: R20.2 Paresthesia of skin, left arm weakness COMPARISON: None IMPRESSION: 4 views of the cervical spine including dynamic lateral radiographs are submitted. There is moderate reversal of normal cervical lordosis in the neutral position. There is normal lordosis in the extended position. Vertebral heights are preserved. No fracture or aggressive bone lesion is seen. Minimal disc degenerative changes are noted at C5-6. Alignment is anatomic. Prevertebral soft tissues are unremarkable. [id number] Performing Organization Address [facility]/Zipcode Phone Number [facility] [address] [place] [address] XR Lumbar Spine Ap Lateral Flexion And Extension (05/08/2018 5:07 PM CDT) Narrative Performed At EXAMINATION: XR LUMBAR SPINE AP LATERALFLEXION AND EXTENSION 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 There are 5 lumbar type vertebrae. Vertebral heights preserved. No fracture or aggressive bone lesion is seen. Prominent disc degenerative changes are noted at L4-5 with trace grade 1 retrolisthesis of L4. Alignment is otherwise preserved. There is no significant change in alignment on dynamic lateral radiographs. [id number] Procedure Note Hm Interface, Radiology Results Incoming - 05/08/2018 5:16 PM CDT EXAMINATION: XR LUMBAR SPINE AP LATERAL FLEXION AND EXTENSION CLINICAL HISTORY: M54.17 Radiculopathy lumbosacral region, old sciatica COMPARISON: None IMPRESSION: 4 views of the lumbar spine including dynamic lateral radiographs are submitted. There are 5 lumbar type vertebrae. Vertebral heights preserved. No fracture or aggressive bone lesion is seen. Prominent disc degenerative changes are noted at L4-5 with trace grade 1 retrolisthesis of L4. Alignment is otherwise preserved. There is no significant change in alignment on dynamic lateral radiographs. [id number] Performing Organization Address [facility]/Zipcode Phone Number [facility] [address] [place] [address] after 02/23/2018 Insurance Payer Benefit Plan / Group Subscriber ID Type Phone Address MEDICARE MEDICARE PART A AND B xxxxxxxxxxx Medicare [place], [place] MEDICAID MEDICAID xxxxxxxxx Medicaid Advance Directives Patient has advance care planning documents on file. For more information, please contact:[id number] [place] [address]
--- OUTSIDE RECORDS SUMMARY | 2019-02-24 06:21 | XMS REPORT ---
:1985 Author Organization [facility] Address [address] [place] [address] Dr. Morton. [address] [place] [address] Care Team Providers Name Role Phone DR PATRIC BAKER Unavailable Unavailable TANI BROWN Unavailable Unavailable Problems This patient has no known problems. Allergies, Adverse Reactions, Alerts This patient has no known allergies or adverse reactions. Medications This patient has no known medications. Encounters Start End Encounter Admission Attending Care Care Encounter Date/Time Date/Time Type Type Clinicians Facility Department ID 2018-09-28 2018-09-29 Emergency E PATRIC BAKER [facility] [id number] 20:24:00 00:00:00 2017-07-08 2017-07-08 Emergency E STEPHANIE [facility] [id number] 02:45:00 03:45:00 TANI Results Test Description Test Time Test Comments Text Results Atomic Results Result Comments U/S GALLBLADDER*WW* 2018-09-28 23:03:49 LOCATION: [id number]: 33-year-old female with right upper quadrant abdominal pain.COMMENT:Sonographic imaging of this patient's right upper abdominal quadrant wasperformed.Liver echotexture is unremarkable. No cysts or masses are present. The liverspan is 13.3 cm.Doppler interrogation of the main portal vein exhibits hepatopedal blood flow.The gallbladder is unremarkable. The wall is 3 mm thick. The common bile ductdiameter is 4 mm.The pancreas is obscured by intestinal gas.The right kidney is unremarkable, measuring 9.6 x 4.0 x 5.3 cm.The aorta and IVC are unremarkable.IMPRESSION: Unremarkable right upper quadrant abdominal ultrasound examination. AMYLASE AND LIPASE *WW* 2018-09-28 21:59:00 Test Item Value Reference Range Comments AMYLASE (test code=10A) 44 U/L 28-100 LIPASE (test code=60A) 133 IU/L 73-393 COMPREHENSIVE METABOLIC THOMPSON *WW*2018-09-28 21:59:00 Test Item Value Reference Range Comments GLUCOSE (test code=06D) 92 mg/dL 75-100 SODIUM (test code=01A) 140 mmol/L 136-145 POTASSIUM (test code=01B) 3.7 mmol/L 3.6-5.1 CHLORIDE (test code=04A) 105 mmol/L 98-107 CO2 (test code=02A) 24 mmol/L 22-32 ANION GAP (test code=ANG) 14.9 mmol/L BUN (test code=05D) 9 mg/dL 7-18 CREATININE (test code=03E) 0.7 mg/dL 0.4-1.1 BUN/CREA (test code=BCR) 13 12-20 CALCIUM (test code=09D) 8.5 mg/dL 8.3-9.5 BILI TOTAL (test code=11A) 0.2 mg/dL 0.2-1.0 PROTEIN (test code=07D) 7.5 g/dL 6.4-8.2 ALBUMIN (test code=08D) 3.7 g/dL 3.5-4.8 GLOBULIN (test code=GLB) 3.9 g/dL 1.5-3.8 ALB/GLOB (test code=AGRR) 0.9 1.0-2.6 ALK PHOS (test code=35A) 69 IU/L 42-121 AST (test code=30A) 16 IU/L <=42 ALT (test code=31A) 22 IU/L <=78 PRO TIME AND PTT 2018-09-28 21:48:00 Test Item Value Reference Range Comments PT (test code=TT) 12.3 s 9.8-13.6 INR (test code=INR) 1.1 INRH (test code=INRH) SUGGESTED THERAPEUTIC RANGE FOR INR: 2.5 - 3.5 For Patients with Prosthetic Valves or Patients with recurrent Thromboembolic Events 2.0 - 3.0 For Most Other Applications PTT (test code=PTT) 24.4 s 20.2-38.0 PTTH (test code=PTTH) To monitor the effectiveness of heparin, we offer the Anti-Xa (Heparin Assay). It can be used for either unfractionated or LMW Heparin. Order Code is ANTI-XA URINALYSIS WITH MICRO *WW*2018-09-28 21:40:00 Test Item Value Reference Range Comments COLOR (test code=COLU) YELLOW YELLOW CLARITY (test code=CLA) CLEAR CLEAR GLUCOSE UR (test code=UA GLUCOSE) NEGATIVE NEGATIVE BILI UR (test code=BILE) NEGATIVE NEGATIVE KETONES UR (test code=REKHA) NEGATIVE NEGATIVE SP GRAVITY (test code=SPGR) 1.010 1.005-1.030 PH UR (test code=PH) 6.5 4.5-8.0 PROTEIN UR (test code=PU) NEGATIVE NEGATIVE UROBIL UR (test code=UROQ) 0.2 EU/dL 0.2-1.0 NITRITE UR (test code=NITRITE) NEGATIVE NEGATIVE BLOOD UR (test code=UA BLOOD) TRACE-INTACT NEGATIVE LEUK ES UR (test code=LEUK) NEGATIVE NEGATIVE WBC UR (test code=UWBC) 2 /HPF 0-5 RBC UR (test code=URBC) 2 /HPF 0-2 EPITH UR (test code=UEPC) FEW /LPF FEW BACTERIA UR (test code=UBACT) FEW /HPF NONE CAST UR (test code=CAST) /LPF NONE CRYSTAL UR (test code=CRYU) / LPF NONE MUCUS UR (test code=MUC) FEW / HPF NONE AMORPH UR (test code=RAVINDER) / HPF NONE TRICH UR (test code=UTRICH) /HPF NONE YEAST UR (test code=UY) /HPF NONE SPERM UR (test code=USPERM) /HPF NONE CBC (INCLUDES AUTOMATED DIFFERENTIAL)*[id number] 21:32:00 Test Item Value Reference Range Comments WBC (test code=WBC) 12.0 10\S\3/uL 4.5-11.0 RBC (test code=RBC) 4.73 10\S\6/uL 4.30-5.70 HGB (test code=HBG) 13.9 g/dL 12.0-15.5 HCT (test code=HCT) 42.8 % 35.0-44.0 MCV (test code=MCV) 90.5 fL 81.0-99.0 MCH (test code=MCH) 29.4 pg 27.0-31.0 MCHC (test code=MCHC) 32.5 g/dL 32.0-36.0 RDW (test code=RDW) 12.3 % 11.5-14.5 PLT (test code=PLT) 126 10\S\3/uL 130-400 MPV (test code=MPV) 10.7 fL 9.4-12.4 NEUTROP # (test code=NE#) 7.7 10\S\3/uL 1.6-8.0 LYMPH # (test code=LY#) 3.1 10\S\3/uL 1.1-3.5 MONOCYTE # (test code=MO#) 0.7 10\S\3/uL 0.0-1.1 EOSINOPH # (test code=EO#) 0.4 10\S\3/uL 0.0-0.7 BASOPHIL # (test code=BA#) 0.1 10\S\3/uL 0.0-0.3 IG # (test code=IG#) 0.09 10\S\3/uL 0.00-0.06 NRBC # (test code=NRBC#) 0.00 10\S\3/uL 0.00-0.01 NEUTROPH % (test code=NE%) 63.8 % 35.0-73.0 LYMPH % (test code=LY%) 26.2 % 20.0-55.0 MONO % (test code=MO%) 5.6 % 2.5-10.0 EOSINOPH % (test code=EO%) 3.2 % 0.0-5.0 BASOPHIL % (test code=BA%) 0.4 % 0.0-2.0 IG % (test code=IG%) 0.8 % 0.0-0.8 NRBC% (test code=NRBC%) 0.0 % 0.0-0.2 MANDIFF (test code=WMDIFF) NO NO RBC MORPH (test code=WRBCMOR) NORMAL URINE MONOCLONAL *WW*2018-09-28 21:32:00 Test Item Value Reference Range Comments PREG UR (test code=PGU) NEGATIVE NEGATIVE XR HIP LEFT UNILATERAL 2 VIEWS*WW*2017-07-08 03:31:34LEFT HIP RADIOGRAPHS, 2 VIEWS:After hours services performed at 0312 hours. LOCATION: [id number]: Left hip pain.COMPARISON: None.TECHNIQUE: AP and frog-leg radiographs of the left hip.FINDINGS:Thereis no acute fracture or dislocation. The joint spaces are maintained.IMPRESSION:No acute osseous abnormality.
[2019-02-24] MEDS ORDERED: Ringers Lactate 1,000 ML IV ONE ×3 (06:33→13:59)
[2019-02-24] MEDS ORDERED: SCOPOLAMINE HYDROBROMIDE PATCH TD ONE (06:33)
[2019-02-24] MEDS ORDERED: NA CHLORIDE 0.9% 1,000 ML ONE (07:11)
[2019-02-24] MEDS ORDERED: PROPOFOL 200 MG/20 ML VIAL IV ONE (07:18)
[2019-02-24] MEDS ORDERED: ROCURONIUM 50 MG/5 ML VIAL IV ONE ×2 (07:18→08:18)
[2019-02-24] MEDS ORDERED: GLYCOPYRROLATE 0.2 MG/ML SYR ONE ×2 (07:18)
[2019-02-24] MEDS ORDERED: MIDAZOLAM HCL 2 MG/2 ML INJ ONE (07:19)
[2019-02-24] MEDS ORDERED: FENTANYL CITR 250 MCG/5 ML ONE (07:19)
[2019-02-24] MEDS ORDERED: LIDOCAINE 2% MPF 5 ML VIAL ONE (07:19)
[2019-02-24] MEDS ORDERED: ONDANSETRON 4 MG/2 ML VIAL ONE (07:23)
[2019-02-24] MEDS ORDERED: NEOSTIGMINE 1 MG/ML -10 ML VIAL ONE (08:17)
[2019-02-24] MEDS ORDERED: FENTANYL CITR 100 MCG/2 ML ONE (08:51)
[2019-02-24] MEDS: METHYLENE BLUE 0.5% 10 ML AMP ONE ×2 (09:05→09:21)
[2019-02-24] MEDS ORDERED: KETOROLAC 30 MG/ML INJ ONE (09:09)
[2019-02-24] MEDS: HYDROMORPHONE HCL 2 MG/ML inj ONE ×4 (09:43→09:58)
[2019-02-24] MEDS ORDERED: HYDROCODONE/APAP 5/325 MG TAB ONE (11:50)
--- NOTE | 2019-02-24 16:11 | OP ---
Date of Procedure: 02/24/2019 Surgeon: Merle Soares MD Cinder Block Mason: Amanda Mixon. Preoperative Diagnoses: Menorrhagia, dysmenorrhea, right lower quadrant pain. Postoperative Diagnoses: Menorrhagia, dysmenorrhea, right lower quadrant pain, endometriosis, and fi broid. Procedures Performed: 1.Diagnostic hysteroscopy. 2.Diagnostic laparoscopy, endometriosis excision, chromotubation, and myomectomy x1. Anesthesia: General endotracheal. Estimated Blood Loss: Minimal. Specimens: Uterine fibroid in the left posterior broad ligament, endometriosis, right uterosacral, a nd the left lateral wall. Complications: None. Drains: None. Disposition: The patient's condition is stable. Findings: Anterior cul-de-sac completely free. The posterior right uterosacral ligament with a larg e endometriotic implant and the left lateral wall with another suspicious implant. There was a broad ligament fibroid on the left posterior broad ligament. This was removed completely. All endometrio tic implants were completely excised. Inside the uterine cavity, there was a tiny polypoid structure , but mostly the endometrium completely unremarkable. Both tubal ostia normal. Description Of Procedure: After informed consent was verified, the patient was taken back to OR, karl rosa in supine fashion on the operating table. After general anesthesia was given, she was placed in a dorsal lithotomy position. Pelvic exam was performed. Uterus was found to be anteflexed. No adne xal masses were palpable. Abdomen, vulva, vagina, and perineum were prepped and draped in a sterile fashion. Tapia was placed to drain the bladder. Speculum placed to expose the cervix. Anterior lip grasped with 1 Allis clamp . Direct hysteroscopy through the cervical canal with a SlimLine hysteroscope was conducted into the uterine cavity. The cavity appeared to be completely unremarkable. Tiny polypoid mass in the proxi mal part, which was very small, was not worth sampling. Both tubal ostia were well visualized. Scop e was removed. Diagnostic VCare was introduced and fixed in place, this area draped. A 1 cm infraumbilical incision was made with a scalpel. Fascia incised with a 15-blade, tagged with 0 Vicryl sutures. Peritoneum entered bluntly. S retractors placed. Amisha introduced. Insufflatio n was performed adequately and after entry into the abdominal cavity, the upper abdomen was completel y unremarkable. The patient was placed in T-ayse after placing the 3 trocars, 1 suprapubic, 1 in the each lower quadrant right and left. Both ovaries were normal. Endometriosis was seen in the authorization nurse ior broad ligament going over to the right uterosacral ligament. The uterosacral ligament was infilt rated with the endometriotic implant, it was a large implant. The ureteric tunnel was lateral to it and inferior. Similar implant in a slightly lateral location in the left lateral wall, ureter inferi or and posterior. All the findings were as dictated on the top. No other abnormalities other than the fibroid posterio rly on the left side. The plan was to remove the endometriosis and the fibroid. Endometriosis was r emoved with the monopolar needle tip completely excised by opening up the broad ligament, dissecting the uterine artery and vein away from the ureter and the ureter away from the implant. The implant w as isolated. Incision started on the peritoneum with scissors and completed with the monopolar needl e. A small part of the distal uterosacral ligament was also removed for completion of the endometrio tic excision. In the left lateral wall, similar dissection was performed laterally opening up the peritoneum with s cissors and opening it up medially and bringing the dissection towards the vessels and the ureter, pu shing them medially, isolating the broad ligament within lateral peritoneum, taken down with a monopo lar needle. This was all completely excised. Pictures were taken. The myoma was removed with the h elp of the monopolar needle tip. This did not appear to be attached to the uterus, but it was only i n the broad ligament, so I decided to remove it so that it does not grow. Thorough irrigation and suction were performed. The appendix was well visualized without any dilatio n, erythema, or tumor. All the trocars were removed under direct vision. Thorough irrigation and stewart ction were performed before that. Then, the fascia at the umbilicus was closed with 0 Vicryl in a fi [id number] fashion. All the skin incisions closed with the help of interrupted 4-0 Vicryl sutures . VCare and Tapia were removed. Instrument, needle, and sponge counts were correct at the case. Th e patient tolerated the procedure well. She will follow up with me in 1 week. ABRAM/KASI Voice ID: [id number] Report ID: [id number]
== END 2019-02-24 15:15 | disposition home or self-care (01) ==
LOC: OR 06:16
PROVIDERS: ATTEND Obstetrics & Gynecology
PROC: 0UB44ZZ Excision of Uterine Supporting Structure, Percutaneous Endoscopic Approach (ICD-10-PCS; 2019-02-24)
PROC: 0UB94ZZ Excision of Uterus, Percutaneous Endoscopic Approach (ICD-10-PCS; principal; 2019-02-24 07:30)
DX: D25.9 Leiomyoma of uterus, unspecified (principal); N80.0 Endometriosis of uterus; N92.1 Excessive and frequent menstruation with irregular cycle; N94.6 Dysmenorrhea, unspecified; G35 Multiple sclerosis; I10 Essential (primary) hypertension; F41.9 Anxiety disorder, unspecified; F32.9 Major depressive disorder, single episode, unspecified; Z79.899 Other long term (current) drug therapy
CPT/HCPCS: 58662; 85025; 36415 ×2; 86900; 86850; 84703; 86901; 88305; 81003; J2704; J2710; J2250; J1170; J3010 ×2; J7030; J2405

== ENCOUNTER 2020-06-20 06:29 | Day surgery (SDC) | payer OTHER ==
[2020-06-14 11:16] LABS: Absolute Lymphocytes (CBC) 2.4 K/uL (0.7-4.9); Basophils % 0.4 % (0-1.3); Hematocrit 44.2 % (36.0-45.0); Lymphocytes % 21.4 % (15.3-44.8); MPV 9.3 fL (7.6-11.3); RBC Red Blood Cell Count 4.82 M/uL (3.86-4.86)
[2020-06-14 11:18] LABS: Urine Appearance CLEAR; Urine Bilirubin NEGATIVE (NEG); Urine Blood NEGATIVE (NEG); Urine Color YELLOW; Urine Glucose NEGATIVE (NEG); Urine Protein NEGATIVE (NEG); Urine Specific Gravity <=1.005 (1.005-1.030); Urine Urobilinogen 0.2 mg/dL (0.2-1.0); Urine pH 6.5 (5.0-7.0)
[2020-06-14 11:25] LABS: Urine Microscopic Reflex NO UMIC
--- OUTSIDE RECORDS SUMMARY | 2020-06-20 06:32 | XMS REPORT | Summary of Care ---
:1985 Author Name MARLIN Strange Address Unavailable Unavailable , Care Team Providers Name Role Phone MARLIN Strange Unavailable Unavailable KRISTIE NEVES Unavailable Unavailable KRISTIE NEVES Unavailable Unavailable DIANELYS NEVES Unavailable Unavailable Isabel DOMINGUEZ Unavailable Unavailable BOBY NEVES UT Unavailable Unavailable ROBIN NEVES Unavailable Unavailable MARLIN NEVES UT Unavailable Unavailable GEM NEVES UT Unavailable Unavailable Unavailable Unavailable Unavailable Functional Status Name Dates Details Functional status health issues are not documented Status: Name Dates Details Cognitive status health issues are not documented Status: Problems Name Dates Details Demyelinating disease (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 Refills: 0 Start : 14-Jul-2018 Active 15 Tablet Bottle Gabapentin 300 MG Oral Capsule TAKE 1 CAPSULE 3 TIMES DAILY. Refills: 3 Start : 14-Jul-2018 Active Metoprolol Succinate ER 100 MG Oral Tablet Extended Release 24 Hour Refills: 0 Start : 14-Jul-2018 Active clonazePAM 0.5 MG Oral Tablet Refills: 0 Active Amitiza 24 MCG Oral Capsule Refills: 0 Active Vitamin D3 125 MCG (5000 UT) Oral Capsule Refills: 0 Active Magnesium TABS Refills: 0 Active Multi-Vitamin Oral Tablet Refills: 0 Active Biotin CAPS Refills: 0 Active Allergies and Adverse Reactions Name Dates Details Levbid (Allergy) Status: Active Procedures Procedure Dates Details Procedures not documented Immunization Name Dates Details Immunizations not documented Family History Name Dates Details Family history of multiple sclerosis (V17.2, Z82.0) Status: Active Social History Name Dates Details Tobacco smoking consumption unknown (finding) Vital Signs Date Test Result Details [id number] Systolic blood pressure 120 mm[Hg] Status: Comments: Location: LUE; Position: Sitting Diastolic blood pressure 80 mm[Hg] Status: Comment s: Location: LUE; Position: Sitting Weight 255 lb Status: Body mass index (BMI) [Ratio] 42.43 kg/m2 Status: Body surface area Derived from 2.19 m2 Status: formula Heart Rate 93 /min Status: Comments: Lo cation: L Radial; O2 SAT 97 % Status: Results Date Description Value Details Results not documented Plan of Care Name Dates Details Planned Observations Planned Goals not documented Planned Encounters Appointment; [facility] On: 22-May-2020 10:30 Interventions Provided Plan1. continue daily e/e/c2. schedule reflux study3. f/u after imaging complete Instructions Name Dates Details Instructions not documented Encounters Appointment; DARIO LANDIS M.D. On: 14-Jul-2018 11:00 Encounter Diagnosis: Problem not documented Appointment; HERMAN GUZMAN D.O. On: 23-Dec-2018 11:00 Encounter Diagnosis: Problem not documented Appointment; HERMAN GUZMAN D.O. On: 07-Jan-2019 8:00 Encounter Diagnosis: Problem not documented Appointment; HERMAN GUZMAN D.O. On: 20-Jan-2019 11:00 Encounter Diagnosis: Problem not documented Appointment; DARIO LANDIS M.D. On: 13-Jul-2019 13:00 Encounter Diagnosis: Problem not documented Appointment; CONRAD ISAAC M.D. On: 01-May-2020 8:30 Encounter Diagnosis: Problem not documented
--- OUTSIDE RECORDS SUMMARY | 2020-06-20 06:32 | XMS REPORT | Continuity of Care Document ---
:1985 Author Organization [facility] t Address [address] [place] [address] Care Team Providers Name Role Phone Jeri NEVES Primary Care Physician MARLIN Attending Clinician Unavailable VASCULAR Attending Clinician Unavailable Jed Joyce MD Attending Clinician oLc NEVES Attending Clinician BOBY Attending Clinician Unavailable THOMAS Attending Clinician Unavailable DR OLIVIA Attending Clinician Unavailable GABRIEL Attending Clinician Unavailable GEM Attending Clinician Unavailable Anastasia BROWN Attending Clinician Unavailable DR OLIVIA Admitting Clinician Unavailable Anastasia BROWN Admitting Clinician Unavailable Payers Payer Name Policy Policy Number Effective Expiration Source Type Date Date MEDICAREMEDICARE PART xxxxxxxxxxx 2017 Lawrence Art AND 00:00:00 Faith Pmeukbprenku64[place]11[place] xxxxxxxxx 2018 Kailash dorsey xxxx3-Present 00:00:00 Met rob edicaid Problems Condition Condition Condition Status Onset Resolution Last Treating Co mments Source Name Details Category Date Date Treatment Clinician Date Lumbosacra Lumbosacra Disease Active 2019-0 [place] l 8-05 Methodi radiculopa radiculopa 00:00: st thy thy 00 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 00:00: st brain brain 00 Demyelinat Demyelinat Problem Active U nivers ing ing ity of disease disease [place] [facility] Blurry Blurry Problem Active Univers vision vision ity of [place] [facility] 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 it y of , mild, so , [place], [place] [facility]ici [place] Imbalance Imbalance Problem Active Uni vers [facility] [place] [facility] Depression Depression Problem Active U nivers with with ity of anxiety anxiety [place] [facility] Chronic Chronic Problem Active Univers fatigue fatigue ity of [place] [facility] Other Other Problem Active Univers chronic chronic ity of pain pain [place] [facility] Allergies, Adverse Reactions, Alerts Allergy Allergy Status Severity Reaction(s) Onset Inactive Treating Comm ents Source Name Type Date Date Clinician Morphine Propensi Active Hives, Other 2017-11 Decreas ed [place] ty to (See 12-06 blood Methodi adverse Comments) 00:00: pressure st reaction 00 s to drug Hyoscyam Propensi Active [place] ty to 04-29 Methodi Sulfate adverse 00:00: st reaction 00 s to drug Levbid Allergy Active Univers to drug ity of (finding [place] ) Physici ans Family History Family Member Diagnosis Comments Start Date Stop Date Source aunt Family history of Univers [facility] of [place] multiple sclerosis Physic ians Social History Social Habit Start Date Stop Date Quantity Comments Source Sex Assigned At [place] Faith Alcohol intake 2019-06-07 2019-06-07 Current drinker of [place] morales 00:00:00 00:00:00 alcohol (finding) Methodi st Alcohol Comment 2018-06-04 2018-06-04 ocasionally [place] 00:00:00 00:00:00 Faith Smoking Status Start Date Stop Date Source Current every day smoker 2019-06-07 00:00:00 Kailash dorsey Faith Medications Ordered Filled Start Stop Current Ordering Indication Dosage Frequency Signature Comments Components Source Medication Medication Date Date Medication? Clinician (SIG) Name Name mirtazapine Yes 1{tbl} QD Take 1 [place] (REMERON) 7-13 tablet by Metho di 15 MG 00:00: mouth st tablet 00 nightly. clonAZEPAM 2017-11 Yes .25mg Q.5D Take 0.25 [place] (KlonoPIN) 1-15 mg by Methodi 0.5 MG 00:00: mouth 2 st tablet 00 (two) times a day. Venlafaxine Venlafaxine Yes Univers HCl ER 75 HCl ER 75 9-11 ity o f MG Oral MG Oral 00:00: [place] Capsule Capsule 00 Physici Extended Extended ans Release 24 Release 24 Hour Hour Lisinopril Lisinopril Yes 1 QD TAKE 1 Univers 10 MG Oral 10 MG Oral 9-11 TABLET i ty of Tablet Tablet 00:00: DAILY. Physici ans Gabapentin Gabapentin Yes Q0.3333D TAKE 1 Univers 300 MG Oral 300 MG Oral 9-11 CAPSULE 3 ity of Capsule Capsule 00:00: TIMES DAILY. Physici ans Metoprolol Metoprolol Yes U nivers Succinate Succinate 9-11 ity o f ER 100 MG ER 100 MG 00:00: Levi as Oral Tablet Oral Tablet 00 P hysici Extended Extended ans Release 24 Release 24 Hour Hour lisinopril Yes 10mg QD Take 10 mg [place] (PRINIVIL,Z 6-27 by mouth Meth nani ESTRIL) 10 14:11: daily. st mg tablet 19 venlafaxine Yes 75mg QD Take 75 mg Caal (EFFEXOR) 6 by mouth Method i 75 MG 14:11: daily. st tablet 19 gabapentin Yes 300mg Q.[id number] Take 300 Caal (NEURONTIN) 6- [id number] mg by M ethodi 300 mg 14:11: 3D mouth 3 st capsule 19 (three) times a day. METOPROLOL Yes 25mg Take 25 mg [place] SUCCINATE 6-27 by mouth. Metho di ORAL 14:11: st 19 clonazePAM clonazePAM Yes Uni vers 0.5 MG Oral 0.5 MG Oral i ty of Tablet Tablet [facility] ans Amitiza 24 Amitiza 24 Yes Uni vers MCG Oral MCG Oral ity of Capsule Capsule [facility] ans Vitamin D3 Vitamin D3 Yes Uni vers 125 MCG 125 MCG ity of (5000 UT) (5000 UT) [place] Oral Oral Physici Capsule Capsule ans Magnesium Magnesium Yes Unive rs TABS TABS ity of [facility] ans Multi-Vitam Multi-Vitam Yes U nivers in Oral in Oral ity of Tablet Tablet [facility] ans Biotin CAPS Biotin CAPS Yes U nivers ity of [place] Physici ans Vital Signs Vital Name Observation Time Observation Value Comments Source Systolic blood 2020-05-01 120 mm[Hg] [facility] 09:01:00 Position: [place] Physician s Sitting Diastolic blood 2020-05-01 80 mm[Hg] Location: [place]; [facility] 09:01:00 Position: [place] [facility]ician s Sitting Weight 2020-05-01 255 [lb_av] University 09:01:00 [place] [facility] Body mass index 2020-05-01 42.43 kg/m2 University o f (BMI) [Ratio] 09:01:00 [place] [facility] Heart Rate 2020-05-01 93 /min Location: [facility] 09:01:00 Radial; [place] [facility] O2 SAT 2020-05-01 97 % [facility] 09:01:00 [place] [facility] BP Systolic 2019-07-13 111 mm[Hg] Location: [facility] 13:16:00 Position: [place] Physician s Sitting BP Diastolic 2019-07-13 76 mm[Hg] Location: [facility] 13:16:00 Position: [place] Physician s Sitting Height 2019-07-13 65 [in_us] [facility] 13:16:00 [place] [facility] Weight 2019-07-13 234 [lb_av] [facility] 13:16:00 [place] [facility] Body Mass Index 2019-07-13 38.94 kg/m2 University o f Calculated 13:16:00 [place] [facility] Temperature 2019-07-13 99.7 [degF] Method: Oral University of 13:16:00 [place] [facility] Heart Rate 2019-07-13 108 /min Quality: Normal University o f 13:16:00 [place] [facility] s Respiration Rate 2019-07-13 18 /min Quality: Normal [facility] of 13:16:00 [place] [facility] O2 SAT 2019-07-13 95 % [facility] 13:16:00 [place] [facility] Height 2018-12-23 65 [in_us] University of 11:25:00 [place] [facility] s Weight 2018-12-23 235.6 [lb_av] University 11:25:00 [place] [facility] Body Mass Index 2018-12-23 39.21 kg/m2 University o f Calculated 11:25:00 [place] [facility] s BP Systolic 2018-07-14 133 mm[Hg] University of 10:37:00 [place] [facility] BP Diastolic 2018-07-14 81 mm[Hg] University 10:37:00 [place] [facility] Height 2018-07-14 65 [in_us] University 10:37:00 [place] [facility] Weight 2018-07-14 227 [lb_av] University 10:37:00 [place] [facility] Body Mass Index 2018-07-14 37.77 kg/m2 University o f Calculated 10:37:00 [place] [facility] Heart Rate 2018-07-14 64 /min [facility] 10:37:00 [place] [facility] Procedures Procedure Date / Time Performing Clinician Source Performed CVRAD - Bilateral Lower 2020-05-22 00:00:00 [facility] - [address] CERVICAL SPINE WO 2019-11-10 10:28:36 Dario Joyce Faith CONTRAST AMB REFERRAL TO 2019-08-03 00:00:00 Loc Robby Ten Meth odist NEUROSURGERY [H] Miscellaneous [place] 2018-07-14 00:00:00 [facility] [[facility]] ANGIOTENSIN 2018-07-14 00:00:00 [facility] CONVERTING ENZYME (REKHA) Physicia ns Plan of Care Planned Activity Planned Date Details Comments Source Future Scheduled 2021-05-26 Screening for Caal Me thodist Test 00:00:00 malignant neoplasm of cervix (procedure) [code = 790435262] Future Scheduled 2020-07-04 INFLUENZA VACCINE [place] Faith Test 00:00:00 [code = INFLUENZA VACCINE] Encounters Start End Encounter Admission Attending Care Care Encounter Source Date/Time Date/Time Type Type Clinicians Facility Department ID 2020-06-19 2020-06-19 Outpatient MHFB MHFB [id number] MHFB 07:17:00 07:17:00 2020-05-29 2020-05-29 Appointmen BRITTNEE ISAAC [facility] [id number] Univers 09:15:00 09:15:00 t; CONRAD ISAAC cic & Karissa M.D. Vascular [facility]s [facility] Surgery - Physic i Jaycee ans 2020-05-22 2020-05-22 Appointmen VASCULAR, [facility] UTP [id number] Univers 10:30:00 10:30:00 t; [facility] frida [facility] Physic i ans 2020-05-01 2020-05-01 Appointmen BRITTNEE ISAAC [facility] [id number] Univers 08:30:00 08:30:00 t; CONRAD ISAAC cic & Karissa M.D. Vascular Jes[facility] - Physic i Jaycee ans 2020-02-07 2020-02-07 Outpatient [facility] CAR [id number] MH 09:25:00 09:25:00 2020-01-14 2020-01-14 Outpatient MH CAR [id number] MH 11:10:00 11:10:00 2020-01-03 2020-01-03 Outpatient [facility] CAR [id number] MH 09:40:00 09:40:00 2019-11-10 2019-11-10 Outpatient DARIO [facility] [id number] [place] 00:00:00 00:00:[address] 2019-07-13 2019-07-13 AppointBRITTNEE Vera Neurology - [id number] Univers 13:00:00 13:00:00 t; Alexandr BISHOP [facility] Alexandr BISHOP Center Physi ci ans 2019-06-15 2019-06-15 Outpatient MHFB MHFB [id number] MHFB 08:08:00 08:08:00 2019-04-26 2019-04-26 Emergency E MHFB MHFB [id number] MHFB 13:46:00 13:46:00 2019-01-20 2019-01-20 AppointBRITTNEE Alonso [id number] Univers 11:00:00 11:00:00 t; HERMAN GUZMAN ity o f SHINIL, D.O. [place] D.O. Physici ans 2019-01-07 2019-01-07 BRITTNEE Roger [id number] Univers 08:00:00 08:00:00 t; HERMAN GUZMAN ity o f SHINIL, D.O. [place] D.O. Physici ans 2018-12-23 2018-12-23 AppointBRITTNEE Alonso MIST [id number] Univers 11:00:00 11:00:00 t; HERMAN GUZMAN General & Thalia D.O. Bariatric [place] D.O. Surgery Physici ans 2018-09-28 2018-09-29 Emergency E BA, PATRIC [facility] [id number] [place] 20:24:00 00:00:00 Medica [facility] 2018-07-14 2018-07-14 BRITTNEE [facility] [id number] Univers 11:00:00 11:00:00 t; DARIO, M.D. ity [place], [place] Alexandr BISHOP Physi ci ans 2018-03-17 2018-03-17 Appointmen BRITTNEE RIOS UTP [id number] Univers 14:30:00 14:30:00 t; JAS RIOS ity of FAYYAZ, M.D. [place] M.D. Physici ans 2017-12-23 2017-12-23 Appointmen GEMBRITTNEE UTP [id number] Univers 14:00:00 14:00:00 t; NORMAN RABAGO [facility] Physici ans 2017-07-08 2017-07-08 Emergency E BROWN, [facility] [id number] [place] 02:45:00 03:45:00 [facility] Results Test Description Test Time Test Comments Results Result [facility] e Comments CT Cervical [facility] Spine Wo [address] Contrast 10:54:22 Incoming - 11/10/2019 10:57 AM CSTEXAMINATION: CT CERVICAL SPINE WO CONTRASTCLINICAL HISTORY: M48.02 Spinal stenosis cervical region, M48.02COMPARISON: Cervical spine MRI dated June 17, 2019TECHNIQUE: Axial noncontrast enhanced images of the cervical spine were obtained with coronal and sagittal reconstructed algorithms. CT imaging was performed with iterative reconstruction technique and/or automated exposure control to reduce radiation dose.FINDINGS:No fracture identified. Craniocervical junction is intact. There is reversal cervical lordosis centered at C4. There is no spondylolisthesis. Facet joints are intact. No suspicious osseous lesion. No prevertebral edema or collection identified. There is no visualized mass lesion. Lung apices show no discrete lesions. Axial images through the disc spaces demonstrate the following:C1-C2: There is narrowing of the atlantoaxial interval with spurring. There is no significant stenosis.C2-C3: No significant posterior disc disease, spinal canal or neural foraminal stenosis.C3-C4: Uncovertebral arthrosis and facet disease results in mild to moderate right foraminal narrowing. This is grossly stable.C4-C5: Uncovertebral arthrosis and facet disease results in mild bilateral foraminal narrowing. This is stable to prior MRIC5-C6: Uncovertebral arthrosis and facet disease results in mild bilateral foraminal narrowing. There is posterior spondylosis without canal narrowing.C6-C7: Uncovertebral arthrosis and facet disease results in mild left and minimal right foraminal narrowing. The canal is patent.C7-T1: No significant posterior disc disease, spinal canal or neural foraminal stenosis.IMPRESSION: There is reversal the cervical lordosis without acute osseous abnormality. There is mild spondylosis without significant stenosis identified by CT. Given differences in modality, findings are not significantly changed from prior MRI.[facility][id number] [[facility]] CMP W/EGFR 2019-10-19 10:54:01 Test Item Value Reference Range Interpretation Comme nts Sodium Level (test code = 139 {mEq/l} 332-660 9420-2) Potassium Level (test 4.0 {mEq/l} 3.5-5.1 code = 2823-3) Chloride Level (test code 109 {mEq/l} 95-109 = 2075-0) Carbon Dioxide (test code 26 {mEq/l} 24-32 = 8-9) AGAP; Below Low Threshold 8.0 {mEq/l} 10.0-20.0 (test code = 51891-7) Glucose Lvl (test code = 79 mg/dl 70-99 Ernesto lt reference range values 2345-7) reflect the cli nical guidelinesof th e [place] Diabetes Associ ation. Creatinine Lvl (test code 0.80 mg/dl 0.50-1.40 = 2160-0) Blood Urea Nitrogen (test 10 mg/dl 7-22 code = 3094-0) BUN/Creatinine Ratio 12 6-25 (test code = 3097-3) Total Protein (test code 8.2 g/dl 6.4-8.4 = 2885-2) Albumin Lvl (test code = 4.0 g/dl 3.5-5.0 1751-7) Globulin (test code = 4.2 g/dl 2.7-4.2 80377-2) A/G Ratio (test code = 1.0 0.7-1.6 1759-0) Calcium Level Total (test 9.6 mg/dl 8.5-10.5 code = 75135-6) ALT (test code = 1743-4) 27 u/l 0-65 AST (test code = 40058-6) 16 u/l 0-37 Bili Total (test code = 0.3 mg/dl 0.2-1.3 1974-12) Alk Phos (test code = 70 u/l 39-136 The pe diatric reference ranges 1783-0) for this test r epresent a CLSI-basedtrans ference of the CALIPER databas e of pediatric reference inter vals to the[facility] Vist a analyzer (Clinical Bioch emistry 46 (2012): 1197-12 19). [facility] [employer] has no t internally validated these referenceranges and therefore t hey should be used only in th e context of a thoroughclinica l assessment. eGFR (test code = 96 {ML/MIN/1.7} The eGF R is calculated using the 93232-5) CKD-EPI formula . In most young, healthyindividu als the eGFR will be >90 mL/min/1 .73m2. The eGFR declines with a ge. AneGFR of 60-89 may be no rmal in some populations, pa rticularly the elderly, forwho m the CKD-EPI formula has not been extensively validated. Use of the eGFR isnot recommended in the following populations:Ind ividuals with unstable creati nine concentrations, including patient s and those with serious co-morb id conditions.Marie ents with extremes in mus juan c mass or diet.The data campos corona are obtained from the Nation al Kidney Disease Education Progr am(NKDEP) which additionally re commends that when the eGFR i s used in patientswith ex tremes of body mass index for purposes of drug dosing, the eGF R shouldbe multiplied by t he estimated BMI. [facility]] RHEUMATOID [id number] 10:54:01 Test Item Value Reference Range Interpretation Comments Rheumatoid Factor Quantitative (test <10 0-20 code = 01055-4) [facility]] VITAMIN [id number] 10:54:01 Test Item Value Reference Range Interpretation Comments Vitamin B12 Level (test code = 384 pg/ml 254-1320 2-9) [facility]] FOLATE, [id number] 10:54:01 Test Item Value Reference Range Interpretation Comments Folate Level (test code = 2284-8) 21.5 ng/ml >=3.0 [facility]] CBC (INCLUDES DIFF/PLT)2019-10-19 10:54:01 Test Item Value Reference Range Interpretation Comments WBC; Above High Threshold (test 12.4 {K/CMM} 3.7-10.4 code = 6690-2) RBC (test code = 789-8) 4.86 {M/CMM} 4.20-5.40 Hgb (test code = 718-7) 14.7 g/dl 12.0-16.0 Hct (test code = 27476-0) 45.0 % 36.0-48.0 MCV (test code = 787-2) 92.6 fL 80.0-98.0 MCH (test code = 785-6) 30.3 pg 27.0-31.0 MCHC (test code = 786-4) 32.7 g/dl 32.0-36.0 RDW; Above High Threshold (test 14.9 % 11.5-14.5 code = 788-0) Platelet (test code = 32168-4) 348 {K/CMM} 133-450 Mean Platelet Volume (test code 9.0 fL 7.4-10.4 = 68956-7) [facility]] [id number] 10:54:01 Test Item Value Reference Range Interpretation Comments Segmented Neutrophils (test code 68.0 % 45.0-75.0 = 73427-4) Monocytes (test code = 80501-1) 5.6 % 2.0-12.0 Lymphocytes (test code = 93064-6) 22.5 % 20.0-40.0 Eosinophils (test code = 05036-7) 3.3 % 0.0-4.0 Basophils (test code = 706-2) 0.6 % 0.0-1.0 Segs-Bands #; Above High 8.4 {K/CMM} 1.5-8.1 Threshold (test code = 73003-8) Lymphocytes # (test code = 2.8 {K/CMM} 1.0-5.5 51278-8) Monocytes # (test code = 48910-4) 0.7 {K/CMM} 0.0-0.8 Eosinophils # (test code = 0.4 {K/CMM} 0.0-0.5 45952-6) Basophils # (test code = 99342-1) 0.1 {K/CMM} 0.0-0.2 [facility]] SJOGRENS ANTIBODIES (SS-A,SS-B)2019-10-19 10:54:01 Test Item Value Reference Range Interpretation Comments SS-b (La) Antibody (test code = 5353-8) <0.2 <=0.9 SS-A (Ro) Antibody (test code = 5351-2) <0.2 <=0.9 [facility][] Antinuclear [id number] 10:54:01 Test Item Value Reference Range Interpretation Comments Antinuclear Antibody Screen (test Negative Negative code = 91118-5) [facility][] Lyme Disease Antibody Total w/ Reflex to Western [id number] 10:54:01 Test Item Value Reference Range Interpretation Comments Lyme IgG/IgM Ab (test <0.91 0.00-0.90 Negati ve <0.91 code = Lyme IgG/IgM Ab) Equivocal 0.91 - 1.09 Positive >1.09 Lyme IgM Ab Qnt (test <0.80 0.00-0.79 Negati ve <0.80 code = Lyme IgM Ab Qnt) Equivocal 0.80 - 1.19 Positive >1.19 IgM levels may peak at 3-6 weeks post infe ction, then gradually decline.Perform ed At: [facility] [place] [address] [place] [address] [address] [place], [place] [id number] h HIRAL NEVES Ph:[phone] [facility]] VITAMIN [id number] 10:54:01 Test Item Value Reference Range Interpretation Comments Vitamin B6 7.4 {UG/L} 2.0-32.8 This test was d eveloped and its Level (test performance code = characteristics determined by Vitamin B6 [facility]. It has not been Level) cleared orappro whit by the Food and Drug Administration. Performed At: [facility] [place], [place] [id number] ra Remedios NEVES Ph:[phone] [facility]] VITAMIN B1, WHOLE [id number] 10:54:00 Test Item Value Reference Range Interpretation Comments Vitamin B1 172.2 66.5-200.0 This test was d eveloped and its Level (test nmol/L performance code = characteristics determined by Vitamin B1 [facility]. It has not been Level) cleared orappro whit by the Food and Drug Administration. Performed At: [facility] [id number] [place]ER[place] [id number] ra Remedios NEVES Ph:[phone] [facility] GALL[facility]*WW*2018-09-28 23:03:49LOCATION: [id number]: 33-year-old female with right upper quadrant abdominal [...] unremarkable.IMPRESSION: Unremarkable right upper quadrant abdominal ultrasound examination.AMYLASE AND LIPASE *WW*2018-09-28 21:59:00 Test Item Value Reference Range Interpretation Comments AMYLASE (test code = 10A) 44 U/L 28-100 LIPASE (test code = 60A) 133 IU/L 73-393 COMPREHENSIVE METABOLIC THOMPSON *WW*2018-09-28 21:59:00 Test Item Value Reference Range Interpretation Comments GLUCOSE (test code = 06D) 92 mg/dL 75-100 SODIUM (test code = 01A) 140 mmol/L 136-145 POTASSIUM (test code = 01B) 3.7 mmol/L 3.6-5.1 CHLORIDE (test code = 04A) 105 mmol/L 98-107 CO2 (test code = 02A) 24 mmol/L 22-32 ANION GAP (test code = ANG) 14.9 mmol/L BUN (test code = 05D) 9 mg/dL 7-18 CREATININE (test code = 03E) 0.7 mg/dL 0.4-1.1 BUN/CREA (test code = BCR) 13 12-20 CALCIUM (test code = 09D) 8.5 mg/dL 8.3-9.5 BILI TOTAL (test code = 11A) 0.2 mg/dL 0.2-1.0 PROTEIN (test code = 07D) 7.5 g/dL 6.4-8.2 ALBUMIN (test code = 08D) 3.7 g/dL 3.5-4.8 GLOBULIN (test code = GLB) 3.9 g/dL 1.5-3.8 H ALB/GLOB (test code = AGRR) 0.9 1.0-2.6 L ALK PHOS (test code = 35A) 69 IU/L 42-121 AST (test code = 30A) 16 IU/L <=42 ALT (test code = 31A) 22 IU/L <=78 PRO TIME AND PTT *WW*2018-09-28 21:48:00 Test Item Value Reference Range Interpretation Comments PT (test code = 12.3 s 9.8-13.6 TT) INR (test code = 1.1 INR) INRH (test code = SUGGESTED INRH) THERAPEUTIC RANGE FOR INR: 2.5 - 3.5 For Patients with Prosthetic Valves or Patients with recurrent Thromboembolic Events 2.0 - 3.0 For Most Other Applications PTT (test code = 24.4 s 20.2-38.0 PTT) PTTH (test code = To monitor the PTTH) effectiveness of heparin, we offer the Anti-Xa (Heparin Assay). It can be used for either unfractionated or LMW Heparin. Order Code is ANTI-XA URINALYSIS WITH MICRO *WW*2018-09-28 21:40:00 Test Item Value Reference Range Interpretation Comments COLOR (test code = COLU) YELLOW YELLOW CLARITY (test code = CLA) CLEAR CLEAR GLUCOSE UR (test code = UA NEGATIVE NEGATIVE GLUCOSE) BILI UR (test code = BILE) NEGATIVE NEGATIVE KETONES UR (test code = REKHA) NEGATIVE NEGATIVE SP GRAVITY (test code = SPGR) 1.010 1.005-1.030 PH UR (test code = PH) 6.5 4.5-8.0 PROTEIN UR (test code = PU) NEGATIVE NEGATIVE UROBIL UR (test code = UROQ) 0.2 EU/dL 0.2-1.0 NITRITE UR (test code = NITRITE) NEGATIVE NEGATIVE BLOOD UR (test code = UA BLOOD) TRACE-INTACT NEGATIVE A LEUK ES UR (test code = LEUK) NEGATIVE NEGATIVE WBC UR (test code = UWBC) 2 /HPF 0-5 RBC UR (test code = URBC) 2 /HPF 0-2 EPITH UR (test code = UEPC) FEW /LPF FEW BACTERIA UR (test code = UBACT) FEW /HPF NONE A CAST UR (test code = CAST) /LPF NONE CRYSTAL UR (test code = CRYU) / LPF NONE MUCUS UR (test code = MUC) FEW / HPF NONE A AMORPH UR (test code = RAVINDER) / HPF NONE TRICH UR (test code = UTRICH) /HPF NONE YEAST UR (test code = UY) /HPF NONE SPERM UR (test code = USPERM) /HPF NONE CBC (INCLUDES AUTOMATED DIFFERENTIAL)*[id number] 21:32:00 Test Item Value Reference Range Interpretation Comments WBC (test code = WBC) 12.0 10\S\3/uL 4.5-11.0 H RBC (test code = RBC) 4.73 10\S\6/uL 4.30-5.70 HGB (test code = HBG) 13.9 g/dL 12.0-15.5 HCT (test code = HCT) 42.8 % 35.0-44.0 MCV (test code = MCV) 90.5 fL 81.0-99.0 MCH (test code = MCH) 29.4 pg 27.0-31.0 MCHC (test code = MCHC) 32.5 g/dL 32.0-36.0 RDW (test code = RDW) 12.3 % 11.5-14.5 PLT (test code = PLT) 126 10\S\3/uL 130-400 L MPV (test code = MPV) 10.7 fL 9.4-12.4 NEUTROP # (test code = NE#) 7.7 10\S\3/uL 1.6-8.0 LYMPH # (test code = LY#) 3.1 10\S\3/uL 1.1-3.5 MONOCYTE # (test code = MO#) 0.7 10\S\3/uL 0.0-1.1 EOSINOPH # (test code = EO#) 0.4 10\S\3/uL 0.0-0.7 BASOPHIL # (test code = BA#) 0.1 10\S\3/uL 0.0-0.3 IG # (test code = IG#) 0.09 10\S\3/uL 0.00-0.06 H NRBC # (test code = NRBC#) 0.00 10\S\3/uL 0.00-0.01 NEUTROPH % (test code = NE%) 63.8 % 35.0-73.0 LYMPH % (test code = LY%) 26.2 % 20.0-55.0 MONO % (test code = MO%) 5.6 % 2.5-10.0 EOSINOPH % (test code = EO%) 3.2 % 0.0-5.0 BASOPHIL % (test code = BA%) 0.4 % 0.0-2.0 IG % (test code = IG%) 0.8 % 0.0-0.8 NRBC% (test code = NRBC%) 0.0 % 0.0-0.2 MANDIFF (test code = WMDIFF) NO NO RBC MORPH (test code = NORMAL WRBCMOR) URINE MONOCLONAL *WW*2018-09-28 21:32:00 Test Item Value Reference Range Interpretation Comments PREG UR (test code = PGU) NEGATIVE NEGATIVE [[facility]] ANGIOTENSIN CONVERTING ENZYME (REKHA)2018-07-14 13:19:01 Test Item Value Reference Range Interpretation Comments Angiotensin Converting Enzyme (test 11 u/l 8-52 code = 2742-5) [facility][H] Mis GfoTxpa1712-10-81 12:52:01 Test Item Value Reference Range Interpretation Comments [facility] SEE COMMENT NMO/AQP4 FACS, SNMO/AQP4 (test code = FACS, SNegative Reference [facility] Value: Negativ eRecommend repeat testing in 6 months if clinical jesse picion is high. Negativer esult can occur in the se tting of immunosuppressi on.Testing performed at:[address] [facility] HIP LEFT UNILATERAL 2 VIEWS*WW*2017-07-08 03:31:34LEFT HIP RADIOGRAPHS, 2 VIEWS:After hours services performed at 0312 hours. LOCATION: [id number]:Left hip pain.COMPARISON: None.TECHNIQUE: AP and frog-leg radiographs of the left hip.FINDINGS:Thereis no acute fracture or dislocation. The joint spaces are maintained.IMPRESSION:No acute osseous abno rmality.
--- OUTSIDE RECORDS SUMMARY | 2020-06-20 06:32 | XMS REPORT | Clinical Summary ---
:1985 Author Organization [facility] Address [address] [place] [address] Care Team Providers Name Role Phone MD Jeri Primary Care Provider Allergies Active Allergy Reactions Severity Noted Date Comments Hyoscyamine Sulfate 04/29/2018 Morphine Hives, Other (See 10/05/2018 Decreased blood Comments) pressure Medications Medication Sig Dispensed Refills Start Date End Date Status lisinopril Take 10 mg by 0 Activ e (PRINIVIL,ZESTRIL) 10 mouth daily. mg tablet venlafaxine (EFFEXOR) Take 75 mg by 0 Active 75 MG tablet mouth daily. gabapentin (NEURONTIN) Take 300 mg by 0 Active 300 mg capsule mouth 3 (three) times a day. METOPROLOL SUCCINATE Take 25 mg by 0 Active ORAL mouth. clonAZEPAM (KlonoPIN) Take 0.25 mg by 2 09/17/2018 Active 0.5 MG tablet mouth 2 (two) times a day. mirtazapine (REMERON) Take 1 tablet by 2 05/15/2019 Active 15 MG tablet mouth nightly. 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 06/07/2019 Encounters Date Type Specialty Care Team Description 04/27/2020 Travel 11/10/2019 Hospital Encounter Radiology Randy Jackson MD Cerv ical spinal stenosis 10/14/2019 Transcribe Orders Access Randy Jackson MD Cervi graciela spinal stenosis (Primary Dx) 09/24/2019 Orders Only Neurology Robby Monterroso MD after 06/20/2019 Social History Tobacco Use Types Packs/Day Years Used Date Current Every Day Smoker Smokeless Tobacco: Never Used Alcohol Use Drinks/Week oz/Week Comments Yes ocasionally Sex Assigned at Date Recorded Not on file Job Start Date Occupation Industry Not on file Not on file Not on file Travel History Travel Start Travel End No recent travel history available. Last Filed Vital Signs Not on file Plan of Treatment Health Maintenance Due Date Last Done Comments INFLUENZA VACCINE 07/04/2020 CERVICAL CANCER SCREENING 05/26/2021 05/26/2018 Procedures Procedure Name Priority Date/Time Associated Comments Diagnosis CT CERVICAL SPINE WO Routine 11/10/2019 10:28 Cervical spinal Results for this CONTRAST AM FOOD SERVICE COORDINATOR stenosis procedure are i n the results section. AMB REFERRAL TO Routine 08/03/2019 NEUROSURGERY after 06/20/[address] Cervical Spine Wo Contrast (11/10/2019 10:28 AM FOOD SERVICE COORDINATOR) Specimen Narrative Performed At EXAMINATION: CT CERVICAL SPINE WO CONTRA [facility] CLINICAL HISTORY: M48.02 Spinal stenosis cervical region, M48.02 COMPARISON: Cervical spine MRI dated A ugust 2018 TECHNIQUE: Axial noncontrast enhanced images of the ce rvical spine were obtained with coronal and sagittal reconstructed algor ithms. CT imaging was performed with iterative reconstruction technique and/or automated exposure control to reduce radiation dose. FINDINGS: No fracture identified. Craniocervical junction is int act. There is reversal cervical lordosis centered at C4. There is no spondylolisthesis. Facet joints are intact. No suspici ous osseous lesion. No prevertebral edema or collect ion identified. There is no visualized mass lesion. Lung apices s how no discrete lesions. Axial images through the disc spaces dem onstrate the following: C1-C2: There is narrowing of the atlantoaxial interval with spurring. There is no significant stenosis. C2-C3: No significant posterior disc disease, spinal c anal or neural foraminal stenosis. C3-C4: Uncovertebral arthrosis and facet disease resul ts in mild to moderate right foraminal narrowing. This is grossly stable. C4-C5: Uncovertebral arthrosis and facet disease resul ts in mild bilateral foraminal narrowing. This is s table to prior MRI C5-C6: Uncovertebral arthrosis and facet disease resul ts in mild bilateral foraminal narrowing. There is posterior spon dylosis without canal narrowing. C6-C7: Uncovertebral arthrosis and facet disease resul ts in mild left and minimal right foraminal narrowing. T he canal is patent. C7-T1: No significant posterior disc disease, spinal c anal or neural foraminal stenosis. IMPRESSION: There is reversal the cervical lordosis without acute osseous abnormality. There is mild spondylosis without signifi cant stenosis identified by CT. Given differences in modality, findi ngs are not significantly changed from prior MRI. [facility]-[id number] Procedure Note Hm Interface, Radiology Results - 11/10/2019 10:57 AM FOOD SERVICE COORDINATOR EXAMINATION: CT CERVICAL SPINE WO CONTRAST CLINICAL HISTORY: M48.02 Spinal stenosis cervical region, M48.02 COMPARISON: Cervical spine MRI dated 2018 TECHNIQUE: Axial noncontrast enhanced im ages of the cervical spine were obtained with coronal and sagittal reconstructed algorithms. CT imaging was performed with iterative reconstruction technique and/or automated exposure control to reduce radiation dose. FINDINGS: No fracture identified. Craniocervical j unction is intact. There is reversal cervical lordosis centered at C4. There is no spondylolisthesis. Facet joints are intact. No suspicious osseous lesion. No prevertebral edema or collection identified. There is no visualized mass lesion. Lung apices s how no discrete lesions. Axial images through the disc spaces dem onstrate the following: C1-C2: There is narrowing of the atlanto axial interval with spurring. There is no significant stenosis. C2-C3: No significant posterior disc dis ease, spinal canal or neural foraminal stenosis. C3-C4: Uncovertebral arthrosis and facet disease results in mild to moderate right foraminal narrowing. This is grossly stable. C4-C5: Uncovertebral arthrosis and facet disease results in mild bilateral foraminal narrowing. This is stable to prior MRI C5-C6: Uncovertebral arthrosis and facet disease results in mild bilateral foraminal narrowing. There is posterior spondylosis without canal narrowing. C6-C7: Uncovertebral arthrosis and facet disease results in mild left and minimal right foraminal narrowing. The canal is patent. C7-T1: No significant posterior disc dis ease, spinal canal or neural foraminal stenosis. IMPRESSION: There is reversal the cervical lordosis without acute osseous abnormality. There is mild spondylosis without significant stenosis identified by CT. Given differences in modality, findings are not significantly changed from prior MRI. [facility]-[id number] Performing Organization Address City/State/Zipcode Phone Number [facility] [id number] [place] [address] Ambulatory referral to Neurosurgery (08/03/2019) Narrative Performed At This result has an attachment that is no t available. after 06/20/2019 Insurance Payer Benefit Plan / Subscriber ID Effective Dates Phone Addre ss Type Group MEDICARE MEDICARE PART A xxxxxxxxxxx 2017-Present [place] Medicare AND B MEDICAID MEDICAID xxxxxxxxx 2018-Present Med icaid Advance Directives For more information, please contact: [phone] Type Date Recorded Patient Gynecology Teacher Explanati on Advance Directives, Living Will and Medical Power of Solar Engineer
--- OUTSIDE RECORDS SUMMARY | 2020-06-20 06:33 | XMS REPORT | Summary of Care ---
[...] (Allergy) Status: Active Procedures Procedure Dates Details CVRAD - Bilateral [place] Lmt - [address] Date: 22-May-2020 Immunization Name Dates Details Immunizations not documented Family History Name Dates Details Family history of multiple sclerosis (V17.2, Z82.0) Status: Active Social History Name Dates Details Tobacco smoking consumption unknown (finding) Vital Signs Date Test Result Details [id number] Systolic blood pressure 120 mm[Hg] Status: Comments: [...] Planned Goals not documented Planned Encounters Appointment; CONRAD ISAAC M.D. On: 29-May-2020 9:15 Interventions Provided Plan1. continue daily e/e/c2. schedule right and left gsv ablation with varithena Instructions Name Dates Details Instructions not documented [...] 01-May-2020 8:30 Encounter Diagnosis: Problem not documented Appointment; TARIK BERUMEN On: 22-May-2020 10:30 Encounter Diagnosis: Problem not documented Appointment; CONRAD ISAAC M.D. On: 29-May-2020 9:15 Encounter Diagnosis: Problem not documented
[2020-06-20 06:49] LABS: Specific Gravity 1.025 (1.005-1.030)
[2020-06-20] MEDS ORDERED: CEFAZOLIN/SWI 1gm 1 GM/10 ML SYR ONE (06:54)
[2020-06-20] MEDS ORDERED: Ringers Lactate 1,000 ML IV ONE ×3 (06:54→13:24)
[2020-06-20] MEDS ORDERED: CEFAZOLIN/SWI 2gm 2 GM/20 ML SYR ONE (06:54)
[2020-06-20] MEDS ORDERED: KETAMINE HCL 500 MG/5 ML VIAL ONE (07:06)
[2020-06-20] MEDS ORDERED: ROCURONIUM 50 MG/5 ML VIAL IV ONE (07:06)
[2020-06-20] MEDS ORDERED: dexAMETHasone 10 MG/ML VIAL ONE (07:06)
[2020-06-20] MEDS ORDERED: propofoL 200 MG/20 ML VIAL IV ONE (07:06)
[2020-06-20] MEDS ORDERED: LIDOCAINE 2% MPF 5 ML VIAL ONE (07:07)
[2020-06-20] MEDS ORDERED: MIDAZOLAM HCL 2 MG/2 ML INJ ONE (07:07)
[2020-06-20] MEDS ORDERED: ONDANSETRON 4 MG/2 ML VIAL ONE ×2 (07:07→11:57)
[2020-06-20] MEDS ORDERED: FENTANYL CITR 250 MCG/5 ML ONE (07:07)
[2020-06-20] MEDS ORDERED: SCOPOLAMINE HYDROBROMIDE PATCH TD ONE (07:58)
[2020-06-20] MEDS: BUPIVACAINE 0.25% PF 30 ML VIAL ONE ×2 (08:56→08:57)
[2020-06-20] MEDS: Ringers Lactate 1,000 ML IV ONE ×2 (09:25→09:35)
[2020-06-20] MEDS ORDERED: VECURONIUM 10 MG/VIAL IV ONE (09:41)
[2020-06-20] MEDS ORDERED: KETOROLAC 30 MG/ML INJ ONE (10:38)
[2020-06-20] MEDS ORDERED: NEOSTIGMINE 1 MG/ML -5 ML ONE (11:10)
[2020-06-20] MEDS ORDERED: GLYCOPYRROLATE 0.2 MG/ML SYR ONE (11:10)
[2020-06-20] MEDS: HYDROMORPHONE HCL 1 MG/ML INJ ONE ×6 (11:44→12:09)
[2020-06-20] MEDS ORDERED: HYDROCODONE/APAP 5/325 MG TAB ONE (13:24)
[2020-06-20 13:46] VITALS: BP 105/57; TEMP 97.4; O2SAT 95
--- NOTE | 2020-06-20 20:28 | OP ---
Date of Procedure: 06/20/2020 Surgeon: Merle Soares MD Development Manager: Amanda Mixon. Preoperative Diagnoses: Dysmenorrhea, endometriosis, urgency and overactive bladder. Postoperative Diagnoses: Dysmenorrhea, endometriosis, omental adhesions to the areas of endometriosi s excision, and urgency and overactive bladder. Anesthesia: General endotracheal. Estimated Blood Loss: Less than 100. Procedures Performed: Total laparoscopic hysterectomy, bilateral salpingectomy, removal of omental a dhesions from the endometriotic excision sites. Specimens: Uterus and bilateral tubes. Complications: No complications. Drains: No drains. The patient tolerated the procedure well. Findings: Uterus was anteflexed. No gross endometriosis seen. The area of endometriosis excision, left lateral uterosacral ligament and right lateral wall, all had the omentum walling off, most likel y from the time of recovery after endo treatment in February of 2019. No other endometriotic implants w ere found in the pelvic cavity on close examination. Ureters were undistorted in their course. The cervix was very small and the VCare cup was slightly oversized, and so once the colpotomy was per formed, the entire specimen including the vessels on the left side were all taken down with the help of the LigaSure and the closure was performed with 0 PDS sutures. On cystoscopy, both ureteric orifices had excellent jets of urine. The entire bladder was visualized and no evidence of any trauma, tumors, ulcers. The trigone had some squamous metaplasia and strong jets of urine from both ureteric orifices. Description Of Procedure: After informed consent was verified, she was taken back to OR. I re-conse nted her preop. She had an endo treatment, laparoscopy, and myomectomy in the past 1-1/2 years ago b y me. Her bleeding had improved significantly. Her pain has gotten significantly better postop and then started to get worse again. So, I went ahead and consented her for preservation of the ovaries, removing the uterus, presuming that there was adenomyosis and if any endometriosis was seen, the karl n was to excise. After the patient was taken back and placed in a supine fashion on the operating table, 3 g of Ancef were given, SCDs were placed, pumps were started. Abdomen, vulva, vagina, and perineum prepped and d raped in a sterile fashion. Tapia was placed to drain the bladder and attached for retrograde fillin g and a medium VCare introduced into the uterine canal and fixed in place. After a 1 cm infraumbilical incision was made with a scalpel using the open laparoscopy technique, fa scia was incised, tagged with 0 Vicryl sutures on both sides. Peritoneum entered sharply. S-retract ors were placed. Amisha introduced. Site of entry was checked, unremarkable. Once all these were s et in place, the patient was placed in Trendelenburg. A 5 mm left lower quadrant and right lower gutierrez drant trocars were placed, 10 mm suprapubic was placed right above the dome of the bladder. Then, le ft upper quadrant incision was made for the Triston-Pepe needle for retraction of the bowel after it was tagged with 3-0 Monocryl on the epiploicae for sigmoid colon retraction. The omentum was take n down with the help of the LigaSure as well as sharp dissection from the areas of the posterior cul- de-sac on the left and on the right. This was on the areas of excision of the endo. All this was pu lled and retracted superiorly into the upper abdominal cavity. Hemostasis was secured with the Bovie with the help of the bipolar cautery. After thorough inspection of the pelvic cavity and findings as above, hysterectomy was started. The left tube was removed with the help of the LigaSure. Utero-ovarian ligament and broad ligament taken down and the broad ligament was opened up anteriorly to create a bladder flap and posteriorly to iso late the vessels. Once this was done, then the vessels were isolated, went onto the opposite side an d similar dissection was performed to remove the tube, and then the utero-ovarian ligament, mesosalpi nx, and the round ligament were all taken down. Anterior broad ligament was connected for the bladde r flap and then posteriorly attempted to go to the uterosacral. However, this dissection was very moon rd and there was a lot of scar tissue, so entered the vesicovaginal space with a monopolar hook blade and pushed the bladder down. Then, colpotomy was performed with the help of monopolar hook blade. Once this was made and the vessels were better exposed, then the vessels were taken down with the hel p of the bipolar and the LigaSure on the right side. Then, the cardinal ligaments were taken down wi th the help of the bipolar cautery and then with the help of the LigaSure. By this time, the vaginal colpotomy was opened and so placed one jaw inside the vagina and the cervical specimen was removed a s well was detached. Going onto the left side, the vessels were cauterized first with the help of the bipolar basket tip a nd the LigaSure. Then, the colpotomy was opened to the level of the vessels. The vessels were taken down with the help of the LigaSure. Then, the cardinal ligaments and rest of the cervix was removed with the help of the LigaSure as well. With the specimen was pulled out through the vagina, there w as mild bleeding at 10 o'clock at the vaginal cuff. This was cauterized with the LigaSure and then c losure was performed with a simple stitch at both angles using 0 PDS. Then, 3 [id number] were placed in the center opposing the connective tissue, vaginal epithelium adequately, and there was exc ellent closure. There was good hemostasis. The bladder was not dissected much further inferiorly an d so care was taken not to put incision in the bladder. Once all this was closed, there was no evide nce of any electrical, mechanical, or thermal injury to the ureters on the side. The omentum was ins pected. There was some bleeding. This was cauterized with bipolar and hemostasis was secured with t he bipolar. Then, good irrigation and suction was performed. All the trocars were removed under dir ect vision. The bowel was released with a 3-0 Monocryl stitch that was cut. There was good hemostas is here as well. All the entry points were injected with Marcaine at the entry and exit. The gas wa s desufflated in a close fashion for umbilical incision. The fascia was closed with the help of 0 Vi cryl. Tag sutures tied together at both ends and simple 0 Vicryl stitch at the suprapubic fascial si te. All skin incisions closed with the help of interrupted 4-0 Vicryl sutures. Tapia removed and cystoscopy was performed. The entire bladder dome with the bladder trigone and lat eral baum were well visualized, and there were excellent streams of urine from both ureteric orifice s. There was some squamous metaplasia in the trigone and no evidence of any tumors, ulcers, or forei gn body in the bladder. The urethra was well examined as well and drained. Then, vaginal cuff was v isualized with the cystoscope after bladder was drained with Tapia. There was good hemostasis. Ther e was a small laceration at the vestibule and likely from the vaginal manipulator, and this was sutur ed with the help of 2 [id number] 3-0 Vicryl sutures, and there was excellent hemostasis. All [facility] instruments were removed. Instrument, needle, and sponge counts were done and were correct at the end of the case. The patient tolerated the procedure well. She has a 1 week followup appointment wi in the office. Her narcotic prescriptions will be called to the Pharmacy. Instructions sheets for recovery postop have been given to the patient. She will be discharged home today after recover y in voiding Urine Output: 200. ABRAM/KASI Voice ID: [id number] Report ID: [id number]
== END 2020-06-20 16:15 | disposition home or self-care (01) ==
LOC: OR 06:29
PROVIDERS: ATTEND Obstetrics & Gynecology
PROC: 0UT74ZZ Resection of Bilateral Fallopian Tubes, Percutaneous Endoscopic Approach (ICD-10-PCS; 2020-06-20)
PROC: 0UT94ZZ Resection of Uterus, Percutaneous Endoscopic Approach (ICD-10-PCS; principal; 2020-06-20 09:00)
DX: N94.6 Dysmenorrhea, unspecified (principal); N80.3 Endometriosis of pelvic peritoneum; N88.8 Other specified noninflammatory disorders of cervix uteri; N87.9 Dysplasia of cervix uteri, unspecified; N83.8 Other noninflammatory disorders of ovary, fallopian tube and broad ligament; N94.89 Other specified conditions associated with female genital organs and menstrual cycle; K66.0 Peritoneal adhesions (postprocedural) (postinfection); N32.81 Overactive bladder; R39.15 Urgency of urination; Z11.59 Encounter for screening for other viral diseases; I10 Essential (primary) hypertension; G35 Multiple sclerosis; F32.9 Major depressive disorder, single episode, unspecified; F41.9 Anxiety disorder, unspecified; F17.210 Nicotine dependence, cigarettes, uncomplicated; Z79.899 Other long term (current) drug therapy
CPT/HCPCS: 36415; 81003; 81025; 85025; 86850; 86900; 86901; 88307; J0690; J1100; J1170; J2250; J2405; J2704; J2710; J3010; J7120; U0002